=== PATIENT | male | born 1935 | race Asian ===

== ENCOUNTER 2017-04-13 10:23 | Emergency (ER) | payer OTHER ==
[2017-04-13 10:28] VITALS: BMI 24.7
[2017-04-13] MEDS ORDERED: ACETAMINOPHEN 325 MG TABLET (FP) PO ONE (10:32)
--- NOTE | 2017-04-13 10:51 | PDOC ---
Attending Attestation - HPI HPI: 04/13/17 11:54 81 year old male with significant past medical history of Afib (on eliquis), CAD , aortic stenosis s/p OMARI (01/2017), HTN, HLD, gout, who presents to the emergency room with 4 days of intermittent fever, cough, body aches, and bilateral calf pain. Pt does not speak Somali - history obtained from daughter. The patient returned from a trip to the [facility] 4 days ago. He reports bilateral calf pain, with the right worse than the left. The fever began after returning from his trip,with the highest being 102. As per daughter , the patient walked downstairs in his sleep last night and does not remember doing so, which has never happened in the past. Denies abdominal pain, nausea, vomiting, diarrhea, constipation. Denies chest pain, SOB. Allergies: NKDA PCP: Dr. Goyal <Rosmery Avalos - Last Filed: 04/13/17 11:54> - Resident Resident Name: Christiano Fox - ED Attending Attestation I have performed the following: I have examined & evaluated the patient, The case was reviewed & discussed with the resident, I agree w/resident's findings & plan, Exceptions are as noted - Physicial Exam PE: GENERAL: Awake, alert, and fully oriented, in no acute distress HEAD: No signs of trauma EYES: PERRLA, EOMI, sclera anicteric, conjunctiva clear ENT: Auricles normal inspection, hearing grossly normal, nares patent, oropharynx clear without exudates. Dry mucosa NECK: Normal ROM, supple, no lymphadenopathy, JVD, or masses LUNGS: Breath sounds equal, clear to auscultation bilaterally. No wheezes, and no crackles. Intermittent dry cough. HEART: Regular rate and rhythm, normal S1 and S2, no murmurs, rubs or gallops ABDOMEN: Soft, nontender, normoactive bowel sounds. No guarding, no rebound. No masses EXTREMITIES: Normal range of motion, no edema. No clubbing or cyanosis. No cords, erythema, or tenderness NEUROLOGICAL: Cranial nerves II through XII grossly intact. Normal speech, normal gait SKIN: Warm, Dry, normal turgor, no rashes or lesions noted. - Medical Decision Making Pt with positive flu swab. Symptoms are consistent with flu. Given IV hydration with improvement in symptoms. Able to tolerate PO in ED. Will DC home. D/w METAL ENGINEERING PROCESS WORKER covering Dr. Goyal. <Kaci Lares - Last Filed: 04/13/17 15:47>
[2017-04-13] MEDS ORDERED: SODIUM CHLORIDE 1,000 ML IV STA (11:07)
--- NOTE | 2017-04-13 11:19 | PDOC ---
History of Present Illness - General Chief Complaint: SIRS, Suspected/Possible Stated Complaint: FEVER Time Seen by Provider: 04/13/17 10:50 History Source: Family Exam Limitations: No Limitations - History of Present Illness Initial Comments: 04/13/17 11:19 The patient is a 81 year old male, with a significant past medical history of HTN, HLD, CAD, A-fib, Aortic Stenosis, and Gout, who presents to the emergency department with fever x 4 days. Patient underwent uncomplicated TAVR on February 17 and then went to the [facility] from 03/09-04/08. Patient returned on and began having fevers that were controlled by tylenol. Patient's Tmax was 102.6 measured by daughter. Patient also complained of headache, muscle aches, and dry cough. Patient came to the ED today due to hallucinations at 3 am last night. Per daughter, patient was altered from baseline. Patient endorses chills , wheezing, bilateral calf pain (R>L) The patient denies chest pain, shortness of breath, dizziness. Denies nausea, vomit, diarrhea and constipation. Denies dysuria, frequency, urgency and hematuria. Allergies: NKDA Past surgical history: TAVR, CABG Social history: denies PMD - Dr. Goyal Past History - Past Medical History Allergies/Adverse Reactions: Allergies Allergy/AdvReac Type Severity Reaction Status Date / Time No Known Allergies Allergy Verified 04/13/17 10:29 Home Medications: Ambulatory Orders Apixaban [Eliquis] 2.5 mg PO DAILY 08/19/15 Colchicine 0.6 mg PO DAILY 08/19/15 Levothyroxine [Synthroid -] 50 mcg PO DAILY 08/19/15 Metoprolol Succinate [Toprol Xl -] 25 mg PO DAILY 08/19/15 Ranolazine [Ranexa] 500 mg PO BID 08/19/15 Rosuvastatin Calcium [Crestor] 5 mg PO HS 08/19/15 Clopidogrel Bisulfate [Plavix -] 75 mg PO DAILY 04/13/17 Pantoprazole Sodium 40 mg PO DAILY 04/13/17 Cardiac Disorders: Yes (CABG 08, DEFIB,) HTN: Yes Hypercholesterolemia: Yes - Surgical History Cardiac Surgery: Yes (CABG 08, DEFIB) - Suicide/Smoking/Psychosocial Hx Smoking History: Never smoked Hx Alcohol Use: No Drug/Substance Use Hx: No Substance Use Type: None Review of Systems - Review of Systems Able to Perform ROS?: Yes Comments:: 04/13/17 11:23 GENERAL/CONSTITUTIONAL: + fever, + chills. No weakness. HEAD, EYES, EARS, NOSE AND THROAT: No change in vision. No ear pain or discharge. No sore throat. CARDIOVASCULAR: No chest pain or shortness of breath RESPIRATORY: + dry cough, + wheezing, No hemoptysis. GASTROINTESTINAL: No nausea, vomiting, diarrhea or constipation. GENITOURINARY: No dysuria, frequency, or change in urination. MUSCULOSKELETAL: +B/l calf pain (L>R). No neck or back pain. SKIN: No rash NEUROLOGIC: + headache, No vertigo, loss of consciousness, or change in strength /sensation. ENDOCRINE: No increased thirst. No abnormal weight change HEMATOLOGIC/LYMPHATIC: No anemia, easy bleeding, or history of blood clots. ALLERGIC/IMMUNOLOGIC: No hives or skin allergy. *Physical Exam - Vital Signs Last Vital Signs Temp Pulse Resp BP Pulse Ox 101.8 F H 94 H 20 156/73 98 04/13/17 10:25 04/13/17 10:25 04/13/17 10:25 04/13/17 10:25 04/13/17 10:25 - Physical Exam Comments: 04/13/17 11:23 GENERAL: Awake, alert, and fully oriented, in no acute distress HEAD: No signs of trauma, normocephalic, atraumatic EYES: PERRLA, EOMI, sclera anicteric, conjunctiva clear ENT: Hearing grossly normal, nares patent, oropharynx clear without exudates. Dry mucosa NECK: Normal ROM, supple, no lymphadenopathy, JVD, or masses LUNGS: No distress, speaks full sentences, clear to auscultation bilaterally HEART: Regular rate and rhythm, normal S1 and S2, +NASEEM at left sternal border ABDOMEN: Soft, nontender, normoactive bowel sounds. No guarding, no rebound. No masses EXTREMITIES: +gouty changes of right hand-- chronic. No clubbing or cyanosis. +B /l calf tenderness to palpation (L>R) No edema SKIN: Warm, Dry, normal turgor, no rashes or lesions noted. ED Treatment Course - LABORATORY CBC & Chemistry Diagram: 04/13/17 11:22 04/13/17 11:05 - RADIOLOGY Radiology Studies Ordered: Category Date Time Status CHEST X-RAY PORTABLE* [RAD] Stat Radiology 04/13/17 11:07 Ordered DUPLEX VASCUL US-2LEGS [US] Stat Ultrasound 04/13/17 11:09 Ordered - Medications Given in the ED: ED Medications Discontinued Medications Generic Name Dose Route Start Last Admin Trade Name Dee PRN Reason Stop Dose Admin Acetaminophen 650 mg 04/13/17 10:32 04/13/17 10:32 Tylenol - PO 04/13/17 10:33 650 mg NOW ONE Administration Medical Decision Making - Medical Decision Making 04/13/17 11:26 The patient is a 81 year old male, with a significant past medical history of HTN, HLD, CAD, A-fib, Aortic Stenosis, and Gout, who presents to the emergency department with fever x 4 days. Given history, physical exam, and vital signs, differential is broad and includes: influenza, TAVR infection, DVT, PE, Pneuomnia. Plan: ED sepsis workup, Influenza Swab, Ultrasound lower extremities 04/13/17 11:33 CBC- hgb 10.6. WBC- 4.6 Plt- 115 EKG- NSR, HR 79, no ST changes suggestive of acute ischemia/infarct 04/13/17 12:54 Labs, UA unremarkable. lactic acid-1.3. Call placed to Dr. Goyal. Spoke with HEALTHCARE ADMINISTRATION INTERN for Dr. Goyal, Case was discussed. HEALTHCARE ADMINISTRATION INTERN feels patient needs hydration and rest and can be discharged. 04/13/17 12:57 Patient feeling much better. Tolerated PO intake. Patient stable for discharge *DC/Admit/Observation/Transfer Diagnosis at time of Disposition: Influenza A - Discharge Dispostion Disposition: HOME Condition at time of disposition: Stable - Referrals Referrals: Kim Goyal MD [Primary Care Provider] - - Patient Instructions Printed Discharge Instructions: DI for Influenza -- Adult Additional Instructions: Follow up with your primary care provider within 1 week. Take tylenol for the fever every 6 hours as needed. Drink plenty of fluids. If you have worsening fever, chest pain, shortness of breath, or any new symptoms please come back to the hospital immediately.
[2017-04-13 11:23] LABS: BASOPHIL 0.7 % (0-2.0); EOSINOPHIL 2.6 % (0-4.5); MCH 34.4 pg (25.7-33.7); MCHC 34.1 g/dl (32.0-35.9); MEAN CELL VOLUME 100.8 fl (80-96); MEAN PLT VOLUME 8.8 fl (7.5-11.1); NEUTROPHILS 69.1 % (42.8-82.8); PLATELET COUNT 115 K/MM3 (134-434); WHITE BLOOD COUNT 4.6 K/mm3 (4.0-10.0)
[2017-04-13 11:48] LABS: ALBUMIN 3.5 g/dl (3.4-5.0); ANION GAP 12 (8-16); BILIRUBIN,TOTAL 0.9 mg/dL (0.2-1.0); CALCIUM 7.8 mg/dL (8.5-10.1); CO2 22 mmol/L (21-32); CPK 106 IU/L (39-308); CREATININE 1.5 mg/dL (0.7-1.3); GLUCOSE,RANDOM 97 mg/dL (74-106); SGOT/AST 56 U/L (15-37); SGPT/ALT 28 U/L (12-78); TOT PROT 6.9 g/dl (6.4-8.2)
[2017-04-13 11:51] LABS: ALK PHOS 64 U/L (45-117); TROPONIN I 0.08 ng/ml (0.00-0.05)
[2017-04-13 12:11] LABS: INR 1.34 (0.82-1.09); PROTHROMBIN TIME (PATIENT) 15.1 SEC (9.98-11.88)
[2017-04-13 12:14] LABS: ACTIVATED PTT 34.8 SECONDS (26.9-34.4)
[2017-04-13 12:19] LABS: URINE APPEARANCE SLCLOUDY; URINE BILIRUBIN NEGATIVE (NEGATIVE); URINE BLOOD 1+ (NEGATIVE); URINE COLOR YELLOW; URINE GLUCOSE (UA) NEGATIVE (NEGATIVE); URINE KETONE NEGATIVE (NEGATIVE); URINE NITRITE NEGATIVE (NEGATIVE); URINE UROBILINOGEN NEGATIVE mg/dL (0.2-1.0)
[2017-04-13 12:21] LABS: URINE PROTEIN 1+ (NEGATIVE)
[2017-04-13 12:23] LABS: GRANULAR CASTS 5 /lpf; URINE HYALINE CAST 5 /lpf; URINE MUCUS RARE; URINE RBC 2 /hpf (0-3); URINE WBC 1 /hpf (3-5)
[2017-04-13 13:11] VITALS: BP 140/61; PULSE 91; TEMP 98.5
[2017-04-13 17:35] LABS: URINE LEUK ESTERASE Negative (NEGATIVE)
--- NOTE | 2017-04-14 10:14 | EKG ---
Test Reason : Blood Pressure : / mmHG Vent. Rate : 079 BPM Atrial Rate : 079 BPM P-R Int : 180 ms QRS Dur : 094 ms QT Int : 406 ms P-R-T Axes : -05 -19 018 degrees QTc Int : 465 ms NORMAL SINUS RHYTHM INFERIOR INFARCT (CITED ON OR BEFORE 31-AUG-2009) ABNORMAL ECG WHEN COMPARED WITH ECG OF 31-AUG-2009 17:43, MS INTERVAL HAS DECREASED T WAVE VARIATION Confirmed by JAVIER AGUILERA, MAYUR ([id number]) on 04/14/2017 10:14:11 AM Referred By: Confirmed By:MAYUR HERRERA MD
== END 2017-04-13 13:11 | disposition home or self-care (01) ==
LOC: JER 10:23
PROC: 3E0337Z Introduction of Electrolytic and Water Balance Substance into Peripheral Vein, Percutaneous Approach (ICD-10-PCS; principal; 2017-04-13)
DX: J09.X2 Influenza due to identified novel influenza A virus with other respiratory manifestations (principal); I25.10 Atherosclerotic heart disease of native coronary artery without angina pectoris; I10 Essential (primary) hypertension; Z95.1 Presence of aortocoronary bypass graft; I48.91 Unspecified atrial fibrillation; Z79.01 Long term (current) use of anticoagulants; I35.0 Nonrheumatic aortic (valve) stenosis; M10.9 Gout, unspecified; Z95.4 Presence of other heart-valve replacement; E78.00 Pure hypercholesterolemia, unspecified; F40.298 Other specified phobia
CPT/HCPCS: 36415; 71010-TC; 80053; 81003; 81015; 82550; 83605; 84484; 85025; 85610; 85730; 86850; 86900; 86901; 87040; 87086; 87804; 93005; 93010; 96360; 96361; 99283-25

== ENCOUNTER 2018-10-03 10:13 | Inpatient (IN) | payer OTHER ==
--- NOTE | 2018-10-03 10:51 | PDOC ---
History of Present Illness - General Chief Complaint: Injury Stated Complaint: LF FOOT INJURY Time Seen by Provider: 10/03/18 10:42 History Source: Patient Exam Limitations: No Limitations - History of Present Illness Initial Comments: Pt is an 83 yo M, with PMH of HTN, HLD, CAD and A-fib (s/p defibrillator and CABG, on eliquis and plavix), TIA, aortic stenosis, and gout, who is presenting via EMS from home for complaints of pre-syncopal episode with fall last night, and difficulty ambulating due to swollen L ankle this AM. Pt is accompanied by his daughter, and pt is Tagalog speaking. Pt states last night he was walking ( pt can normally ambulate with a cane), but fell down to the ground on his knees because he "felt like he might pass out". He denies hitting his head or having LOC. The daughter helped him up from the floor, and he was able to ambulate until this AM. Pt has had a swollen and painful L ankle, and had difficulty bearing weight on the ankle this AM. Pt denies any fevers/chills, headache, vision changes, chest pain, palpitations, SOB, orthopnea, nausea/vomiting, abdominal pain, urinary symptoms, diarrhea/constipation, or leg swelling. Pts daughter, Roma (cell - [phone]). Social: Pt denies any cigarette, alcohol, or drug use. Pt denies any recent travel or sick contacts. Surgical: CABG, defibrillator placement as above. Family: no relevant history. 10/03/18 14:54 Past History - Travel Traveled outside of the country in the last 30 days: No Close contact w/someone who was outside of country & ill: No - Past Medical History Allergies/Adverse Reactions: Allergies Allergy/AdvReac Type Severity Reaction Status Date / Time No Known Allergies Allergy Verified 04/13/17 10:29 Home Medications: Ambulatory Orders Apixaban [Eliquis] 2.5 mg PO DAILY 08/19/15 Colchicine 0.6 mg PO DAILY 08/19/15 Levothyroxine [Synthroid -] 50 mcg PO DAILY 08/19/15 Metoprolol Succinate [Toprol Xl -] 25 mg PO DAILY 08/19/15 Ranolazine [Ranexa] 500 mg PO BID 08/19/15 Rosuvastatin Calcium [Crestor] 5 mg PO HS 08/19/15 Clopidogrel Bisulfate [Plavix -] 75 mg PO DAILY 04/13/17 Pantoprazole Sodium 40 mg PO DAILY 04/13/17 Cardiac Disorders: Yes (CABG 08, DEFIB,) COPD: No HTN: Yes Hypercholesterolemia: Yes Other medical history: gout - Surgical History Cardiac Surgery: Yes (CABG 08, DEFIB) - Suicide/Smoking/Psychosocial Hx Smoking History: Former smoker Have you smoked in the past 12 months: No Information on smoking cessation initiated: No Hx Alcohol Use: No Drug/Substance Use Hx: No Substance Use Type: None Review of Systems - Review of Systems Able to Perform ROS?: Yes Is the patient limited Wolof proficient: No Constitutional: Yes: Weight Stable. No: Chills, Diaphoresis, Fever, Loss of Appetite, Malaise, Weakness HEENTM: No: Blurred Vision, Double Vision, Nose Pain, Nose Congestion, Throat Pain, Throat Swelling, Difficulty Swallowing Respiratory: No: Cough, Orthopnea, Shortness of Breath Cardiac (ROS): Yes: Lightheadedness. No: Chest Pain, Edema, Irregular Heart Rate, Palpitations, Syncope, Chest Tightness ABD/GI: No: Constipated, Diarrhea, Nausea, Poor Appetite, Poor Fluid Intake, Vomiting : No: Burning, Dysuria, Pain, Urgency Musculoskeletal: Yes: See HPI, Joint Pain (L ankle pain and swelling x4 days, gout in hands), Joint Swelling. No: Back Pain, Muscle Pain, Muscle Weakness Integumentary: No: Rash Neurological: Yes: Unsteady Gait, Dizziness. No: Headache, Numbness, Paresthesia, Weakness, Ataxia Psychiatric: No: Sleep Pattern Change, Change in Appetite Endocrine: No: Increased Urine, Change in Weight Hematologic/Lymphatic: Yes: Blood Clots (TIA, CAD). No: Anemia, Easy Bleeding, Easy Bruising All Other Systems: Reviewed and Negative *Physical Exam - Vital Signs Last Vital Signs Temp Pulse Resp BP Pulse Ox 97.8 F 78 16 94/55 L 98 10/03/18 10:25 10/03/18 10:25 10/03/18 10:25 10/03/18 10:25 10/03/18 10:25 - Physical Exam Comments: BP 94/55, HR 78, O2 98% on RA, pt afebrile. Pt in NAD, normal body habitus. Pt alert and oriented x3. collision technician generally intact, muscular strength and sensation intact. Head normocephalic, atraumatic. Eyes PERRLA, EOMI. Oropharynx without erythema or exudates, no LAD b/l. No nasal congestion, hearing intact. Clear heart sounds, S1/S2, no JVD, b/l pedal edema, or heart murmur. Clear lung sounds, no respiratory distress, wheezes, crackles, or accessory muscle use. No abdominal or CVA tenderness to palpation, no rebound, no guarding. Abdomen soft, non-distended, and with normoactive bowel sounds. Skin without jaundice or rash. DP pulses intact b/l, mild edema around L malleoli and dorsum of foot, nontender to palpation. Mild duskiness of 2nd and 3rd L toes. 10/03/18 14:34 ED Treatment Course - LABORATORY CBC & Chemistry Diagram: 10/03/18 11:35 10/03/18 11:35 Medical Decision Making - Medical Decision Making Pt was seen at bedside, also will be seen by attending Dr. Benson. Pt presenting via EMS from home for complaints of pre-syncopal episode with fall last night, and difficulty ambulating due to swollen L ankle this AM. Pt is accompanied by his daughter, and pt is Tagalog speaking. Pt states last night he was walking (pt can normally ambulate with a cane), but fell down to the ground on his knees because he "felt like he might pass out". He denies hitting his head or having LOC. The daughter helped him up from the floor, and he was able to ambulate until this AM. Pt has had a swollen and painful L ankle, and had difficulty bearing weight on the ankle this AM. Pt denies any fevers/chills , headache, vision changes, chest pain, palpitations, SOB, orthopnea, nausea/ vomiting, abdominal pain, urinary symptoms, diarrhea/constipation, or leg swelling. Pts daughter, Roma (cell - [phone]). Ordered work-up including CBC, CMP, coags, cardiac profile, ECG, chest x-ray, UA , x-ray of L foot and ankle, and b/l LE venous and arterial dopplers. Will obtain head CT to r/o any new ischemia/CVA, and look at LE doppler to r/o any emboli or DVT that may be causing lower extremity unilateral swelling considering pt risk factors for emboli. Considering ACS, electrolyte abnormalities and anemia for other causes of pre-syncopal episode. Swelling in foot could also be 2/2 to gout exacerbation or trauma/fracture from the fall. Will continue to reassess pt and monitor for symptomatic improvement. ECG: sinus with 1st degree AV block, LAD (HR 73, NH 220, QRS 104, QTc 440). No TWIs or significant ST segment changes. No significant changes from prior ECG ( 03/2017). CBC and CMP generally WNL for pt. Trop <.02, UA not significant for infection. CT head: no acute pathology, chronic ischemic changes. CT chest: no acute pathology. X-ray L foot: 3 views of the left foot reveal bunion formation by the first MTP joint, other toes with arthritic changes, calcaneal spurring and some vascular calcifications. An acute fracture or subluxation is not seen. Erosive changes or calcifications suggestive of gout are not seen. If symptoms persist, further imaging may be of help 10/03/18 14:34 Dr. Goyal team paged for admission. Consult order placed for Dr. Solomon. Pt in US for b/l LE doppler (arterial and venous). 10/03/18 14:40 Pt admitted to [facility] team. Pending read of doppler US. 10/03/18 15:10 BILATERAL LOWER EXTREMITY ARTERIAL ULTRASOUND Clinical information given: left foot swelling, cyanosis The exam was performed utilizing grayscale as well as color flow and spectral Doppler sonography. Decreased monophasic flow is seen at the level of the left popliteal and posterior tibial arteries. The left common femoral, and superficial femoral arteries demonstrate unremarkable triphasic flow. Evaluation of the right lower extremity demonstrates somewhat diminished biphasic flow at the level of the superficial femoral, popliteal and posterior tibial arteries. The right common femoral artery demonstrates unremarkable triphasic flow. 10/03/18 15:[address] Adhikari (vascular). Pt comfortable and pending bed upstairs for further work-up. 10/03/18 15:55 *DC/Admit/Observation/Transfer Diagnosis at time of Disposition: Pre-syncope, Peripheral arterial disease - Discharge Dispostion Condition at time of disposition: Stable Decision to Admit order: Yes - Referrals Referrals: Kim Goyal MD [Primary Care Provider] - - Patient Instructions - Post Discharge Activity
[2018-10-03 11:51] LABS: BASO % 0.4 % (0-2.0); EOS % 0.7 % (0-4.5); HEMATOCRIT 36.6 % (35.4-49); HEMOGLOBIN 12.7 GM/dL (11.7-16.9); LYMPH % 14.2 % (8-40); MCH 35.4 pg (25.7-33.7); MCHC 34.7 g/dl (32.0-35.9); MEAN PLT VOLUME 7.7 fl (7.5-11.1); MONO % 16.6 % (3.8-10.2); NEUT % 68.1 % (42.8-82.8); PLATELET COUNT 200 K/MM3 (134-434); RBC 3.59 M/mm3 (4.00-5.60); RDW 13.6 % (11.9-15.9); WHITE BLOOD COUNT 5.9 K/mm3 (4.0-10.0)
[2018-10-03 12:20] LABS: ALBUMIN 3.5 g/dl (3.4-5.0); ALK PHOS 63 U/L (45-117); ANION GAP 6 MMOL/L (8-16); BILIRUBIN,TOTAL 0.9 mg/dL (0.2-1); BLOOD UREA NITROGEN 18 mg/dL (7-18); CALCIUM 8.2 mg/dL (8.5-10.1); CHLORIDE 104 mmol/L (98-107); CO2 28 mmol/L (21-32); CREATININE 1.6 mg/dL (0.55-1.3); GLUCOSE,RANDOM 102 mg/dL (74-106); MAGNESIUM 1.9 mg/dL (1.8-2.4); SGOT/AST 21 U/L (15-37); SGPT/ALT 15 U/L (13-61); SODIUM 138 mmol/L (136-145); TOT PROT 6.7 g/dl (6.4-8.2)
[2018-10-03 12:20] LABS: PH,URINE 6.5 (5.0-8.0); URINE APPEARANCE CLEAR; URINE BACTERIA 1.9 /hpf (NEGATIVE); URINE BILIRUBIN NEGATIVE (NEGATIVE); URINE CASTS 3 /hpf (0-8); URINE COLOR DK YELLOW; URINE GLUCOSE (UA) NEGATIVE (NEGATIVE); URINE KETONE TRACE (NEGATIVE); URINE LEUK ESTERASE 1+ (NEGATIVE); URINE NITRITE NEGATIVE (NEGATIVE); URINE PROTEIN TRACE (NEGATIVE); URINE RBC 3 /hpf (0-4); URINE WBC 11 /hpf (0-5)
[2018-10-03 13:36] LABS: INR 1.34 (0.83-1.09); PROTHROMBIN TIME (PATIENT) 15.8 SEC (9.7-13.0)
--- NOTE | 2018-10-03 13:40 | PDOC ---
Attending Attestation - Resident Resident Name: Radha Lau - ED Attending Attestation I have performed the following: I have examined & evaluated the patient, The case was reviewed & discussed with the resident, I agree w/resident's findings & plan, Exceptions are as noted - HPI HPI: 10/03/18 13:32 - Medical Decision Making 10/03/18 13:33 83 yo M h/o HTN HLD CAD AICD afib prior cabg severe aortic stenosis here with c/ o near syncopy. pt state he was standing suddenly felt lightheaded, and fell. was able to ease himself to the ground. denies hitting his head. but is on blood thinner. has h/o gout usually in hands, today c/o left ankle pain and swelling. unsure if from injury day prior. no cp no sob. no f/c no mod factors. pt daughter provides most history states pt unable to walk due to severe pain in left foot. / leg. on exam pt awake alert head atraumtic. lung and heart normal. abd no pulsatile mass. left leg with mild erythema warmth bilat mall, pain with rom no eccymosis. 2 + dp/ pt pulses bilaterlaly . differential near syncope, syncpoe from anemia infection, acs, gout vs. traumatic injury dvt. plan focused ED us aorta r/o aaa, cardiac echo, labs ekg ua xray left ankle. due to pt cant walk, will matti require admission for pt assessmet, rehab. and tele r/o acs. focused ED TTE no rv dilation. overall mildly decr contractility. aortic valve with calcifications, no pericardial effusion. impression: mild red contractility, aortic stenosis / calcification, no pericardial effusion. aorta scanned in two planes. indication syncope r/o aaa prox measured 1.23 cm mid measured 1.5 cm distal aorta < 3 cm. impression: no AAA. plan labs xray doppler left leg. will admit tele obs. pt / assessment. possible sw for rehab. <Teresa Benson - Last Filed: 10/03/18 13:31> - HPI HPI: The patient is a 83 year old Tagalog speaking male, with a significant past medical history of Afib (on eliquis), CAD, aortic stenosis s/p (OMARI 01/2017), HTN, HLD, gout, who presents to the emergency department s/p episode of near syncope. As per patients daughter, he began to feel lightheaded and subsequently lowered himself to the floor. She notes the patient is experiencing swelling to the left ankle with mild discoloration. Allergies: NKDA Primary Care Physician: Dr. Goyal Documentation prepared by Silvano Plata, acting as medical physicist for Teresa Benson MD. <Silvano Plata - Last Filed: 10/03/18 13:52> Heart Score/ECG Review #1 General ECG Interpretation: Sinus Rhythm, Normal Rate (73), Normal Intervals, No acute ischemic changes <Teresa Benson - Last Filed: 10/03/18 13:31>
[2018-10-03] MEDS: RANOLAZINE E.R. 500 MG TABLET (FP) PO SCH (22:46)
[2018-10-03] MEDS: ROSUVASTATIN CA 5 MG TABLET (FP) PO SCH (22:46)
[2018-10-04 01:29] VITALS: BMI 26.2
[2018-10-04] MEDS: LEVOTHYROXINE NA 25 MCG TABLET (FP) PO SCH (06:24)
[2018-10-04 07:35] LABS: BASO % 0.4 % (0-2.0); EOS % 1.5 % (0-4.5); HEMATOCRIT 36.5 % (35.4-49); MCHC 35.5 g/dl (32.0-35.9); MEAN CELL VOLUME 101.4 fl (80-96); MEAN PLT VOLUME 7.6 fl (7.5-11.1); NEUT % 68.1 % (42.8-82.8); PLATELET COUNT 197 K/MM3 (134-434); RDW 13.9 % (11.9-15.9); WHITE BLOOD COUNT 6.3 K/mm3 (4.0-10.0)
[2018-10-04 08:26] LABS: ALBUMIN 3.5 g/dl (3.4-5.0); ALK PHOS 65 U/L (45-117); ANION GAP 7 MMOL/L (8-16); BILIRUBIN,TOTAL 1.1 mg/dL (0.2-1); BLOOD UREA NITROGEN 19 mg/dL (7-18); CALCIUM 8.3 mg/dL (8.5-10.1); CHLORIDE 104 mmol/L (98-107); CO2 27 mmol/L (21-32); CREATININE 1.5 mg/dL (0.55-1.3); GLUCOSE,RANDOM 104 mg/dL (74-106); SGOT/AST 19 U/L (15-37); SGPT/ALT 15 U/L (13-61); SODIUM 138 mmol/L (136-145); TOT PROT 6.8 g/dl (6.4-8.2)
[2018-10-04] MEDS: PANTOPRAZOLE 40 MG TABLET (FP) PO SCH (09:08)
[2018-10-04] MEDS: RANOLAZINE E.R. 500 MG TABLET (FP) PO SCH ×2 (09:08→21:36)
[2018-10-04] MEDS: metoPROLOL SUCCINATE 25 MG TAB.SR.24H (FP) PO SCH (09:08)
[2018-10-04] MEDS: CLOPIDOGREL BISULFATE 75 MG TABLET (FP) PO SCH (09:08)
--- NOTE | 2018-10-04 09:08 | HP ---
Admitting History and Physical - Admission Chief Complaint: Syncope. Weakness History of Present Illness: 3 yo M h/o HTN HLD CAD AICD afib prior cabg severe aortic stenosis here with c/ o near syncopy. pt state he was standing suddenly felt lightheaded, and fell. was able to ease himself to the ground. denies hitting his head. but is on blood thinner. has h/o gout usually in hands, today c/o left ankle pain and swelling. unsure if from injury day prior. no cp no sob. no f/c no mod factors. pt daughter provides most history states pt unable to walk due to severe pain in left foot. / leg. on exam pt awake alert head atraumtic. lung and heart normal. abd no pulsatile mass. left leg with mild erythema warmth bilat mall, pain with rom no eccymosis. 2 + dp/ pt pulses bilaterlaly . differential near syncope, syncpoe from anemia infection, acs, gout vs. traumatic injury dvt. plan focused ED us aorta r/o aaa, cardiac echo, labs ekg ua xray left ankle. due to pt cant walk, jorge alberto chino require admission for pt assessmet, rehab. and tele r/o acs. History Source: Patient, Medical Record Limitations to Obtaining History: No Limitations - Smoking History Smoking history: Former smoker Have you smoked in the past 12 months: No - Alcohol/Substance Use Hx Alcohol Use: No Home Medications - Allergies Allergies/Adverse Reactions: Allergies Allergy/AdvReac Type Severity Reaction Status Date / Time No Known Allergies Allergy Verified 04/13/17 10:29 - Home Medications Home Medications: Ambulatory Orders Apixaban [Eliquis] 2.5 mg PO DAILY 08/19/15 Colchicine 0.6 mg PO DAILY 08/19/15 Levothyroxine [Synthroid -] 50 mcg PO DAILY 08/19/15 Metoprolol Succinate [Toprol Xl -] 25 mg PO DAILY 08/19/15 Ranolazine [Ranexa] 500 mg PO BID 08/19/15 Rosuvastatin Calcium [Crestor] 5 mg PO HS 08/19/15 Clopidogrel Bisulfate [Plavix -] 75 mg PO DAILY 04/13/17 Pantoprazole Sodium 40 mg PO DAILY 04/13/17 Physical Examination Vital Signs: Vital Signs Temperature 99.2 F 04/14/19 05:58 Pulse Rate 72 10/04/18 05:58 Respiratory Rate 18 10/04/18 05:58 Blood Pressure 145/87 10/04/18 05:58 O2 Sat by Pulse Oximetry (%) 97 10/03/18 23:30 Constitutional: Yes: Well Nourished, No Distress, Calm Cardiovascular: Yes: Regular Rate and Rhythm Respiratory: Yes: Regular Gastrointestinal: Yes: Normal Bowel Sounds, Soft Musculoskeletal: Yes: Muscle Weakness Extremities: Yes: WNL Edema: No Peripheral Pulses WNL: Yes Neurological: Yes: Alert, Oriented Psychiatric: Yes: Alert, Oriented Labs: CBC, BMP 10/04/18 06:40 10/04/18 06:35 Imaging - Results Chest X-ray: Report Reviewed Cat Scan: Report Reviewed Ultrasound: Report Reviewed Problem List - Problems (1) Weakness Assessment/Plan: -Physiatry consult -Neuro consult -Deficient in G50=byemguoxh risk for falls -Vit D results pending= deficiency also associated with increased falls- replenish if low -check thyroid panel -UA unremarkable -UC pending -Also check rapid influenza Code(s): R53.1 - WEAKNESS (2) Aortic stenosis Assessment/Plan: -Cardiology consult pending -Tele monitor -Last echo done 08/01/18-normal LVEF Code(s): I35.0 - NONRHEUMATIC AORTIC (VALVE) STENOSIS (3) Peripheral arterial disease Assessment/Plan: -Vascular eval -Likely no intervention Code(s): I73.9 - PERIPHERAL VASCULAR DISEASE, UNSPECIFIED (4) Pre-syncope Assessment/Plan: -Cardiology consult -Neurology consult -Physical therapy -check orthostatic BP Code(s): R55 - SYNCOPE AND COLLAPSE (5) CKD (chronic kidney disease) Assessment/Plan: -Nephrology consult Code(s): N18.9 - CHRONIC KIDNEY DISEASE, UNSPECIFIED Assessment/Plan see problem list On eliquis 2.5 mg once a day, unsure about the indication-PAD?
[2018-10-04] MEDS: CYANOCOBALAMIN (VITAMIN B-12) 1000 MCG/1 ML VIAL IM SCH (09:30)
--- NOTE | 2018-10-04 09:50 | CONS ---
PHYSICAL MEDICINE AND REHABILITATION CONSULTATION DATE OF CONSULTATION: 10/04/2018 HISTORY OF PRESENT ILLNESS: Patient is an 83-year-old male with a past medical history of gout, atrial fibrillation on Eliquis, coronary artery disease, coronary artery bypass graft and defibrillator as well as aortic stenosis and TIA who was admitted after a fall with left ankle pain and swelling as well as presyncopal episodes. Patient per the medical record did not experience any loss of consciousness or head trauma, but fell to his knees and developed left ankle and foot pain. X-rays revealed vascular calcifications, but no fracture. CT of the head showed no acute intracranial pathology and moderate chronic microvascular ischemic changes. Doppler ultrasound showed diminished flow at the level of the left popliteal and posterior tibial arteries. Venous Doppler was negative. CBC on admission demonstrated WBCs 5.9, hemoglobin 12.7, platelet count 200. Repeat blood work this morning was stable with WBCs 6.3, hemoglobin 13.0, platelet count 197. INR was slightly elevated on admission 1.34. Chemistry demonstrated elevated BUN 18 to creatinine 1.6, otherwise sodium 138, potassium 4.0, chloride 104, CO2 of 28. B12 level done today was low at 228. Troponin less than 0.02. Chemistry repeated today showed BUN 19, creatinine 1.5. No uric acid level available. Patient is seen in rehabilitation evaluation, yet to be seen by Physical Therapy. REVIEW OF PAST MEDICAL AND SURGICAL HISTORY: As above. SOCIAL HISTORY: Not available. The patient per his intake demographics may live with a daughter in a private house, premorbidly ambulated with a straight cane. CURRENT FUNCTION: He has been at bedrest as he has just been admitted. REVIEW OF SYSTEMS: No dizziness, lightheadedness. No blurry vision, double vision. No chest pain, shortness of breath. No fever or chills. No bowel, bladder change. He complains of left ankle pain, but no numbness or tingling. No skin discoloration, rash. PHYSICAL EXAMINATION: General: Patient is an elderly man seen lying in bed. He is in no acute distress. HEENT: He is normocephalic and atraumatic. His extraocular muscles appear intact. Neck: Supple. Extremities: He has trace edema of the lower extremities. No calf tenderness, but exquisite tenderness throughout the left ankle which is slightly warm, but again no surrounding erythema or signs of infection. Neuromuscular: He is awake and cooperative, follows visual commands better than verbal due to language barrier. Cranial nerves II through XII grossly intact. Fairly good strength and range throughout the upper extremities despite arthritic changes in the hands. No arthritic changes in the lower extremities except for in the 1st MTP joint, but again he is very tender throughout the left ankle with limited ankle range of motion. Good strength and range proximally in the hip girdle, knee flexors, knee extensors, but the ankle is limited on the left side. Normal range of motion on the right side. Normal sensation to light touch, symmetric reflexes, downgoing toes. OVERALL IMPRESSION: 1. Deficits in mobility, activities of daily living. 2. Left ankle pain and swelling with a history of gout. Seems more tender than would be expected for simple sprain and the tenderness is diffuse, rule out occult fracture, gout or other etiology. 3. Status post fall. 4. Presyncopal episode. 5. Atrial fibrillation on Eliquis. 6. Coronary artery disease, coronary artery bypass graft, defibrillator implant , aortic stenosis. 7. Transient ischemic attack. 8. Elevated creatinine. 9. Low B12 level. 10. Increased risk for decubitus ulcer due to immobility. PLAN/SUGGESTION: 1. Physical therapy. 2. May need left ankle Darius bandage for ankle support. 3. Consider rheumatologic or orthopedic consultation. 4. Consider uric acid level. 5. Replete B12. 6. On Eliquis no further DVT prophylaxis needed. 7. Skin precautions. 8. Bowel regimen, monitor for constipation. 9. May require short-term rehab in a half-way facility. Thank you for this referral. SAGAR RAINES M.D. [id number] MTDD
[2018-10-04] MEDS ORDERED: APIXABAN 2.5 MG TABLET PO SCH (10:00)
--- NOTE | 2018-10-04 12:12 | CONSULT ---
Consult Consult Specialty:: Cardiology (Dr. Denny covering Dr. Solomon) Referred by:: Dr. Goyal Reason for Consultation:: Fall - History of Present Illness Chief Complaint: Fall, ankle pain History of Present Illness: 83 yo M h/o HTN HLD CAD s/p prior CABG (+) Weld Sci ICD placed in 2007 Afib on DOAC Severe aortic stenosis s/p TAVR (Kristian 26mm) in 01/2017 at [facility] [place] Followed by Dr. Solomon Now presents with fall after coming down stairs. History obtain by patient, daughter and spouse at bedside Was found by on the floor awake Patient states that he got to the bottom of his stairs and then fell. Does not recall episodes of prodromal dizziness, chest pains or palpitations. and daughter believe he just lost his balance. Suffered left ankle injury with severe pain No loss of consciousness - History Source History Provided By: Patient, Family Member (Daughter) Limitations to Obtaining History: Poor Historian - Past Medical History Cardio/Vascular: Yes: AFIB, Aortic Stenosis, CAD - Alcohol/Substance Use Hx Alcohol Use: No - Smoking History Smoking history: Former smoker Have you smoked in the past 12 months: No Home Medications - Allergies Allergies/Adverse Reactions: Allergies Allergy/AdvReac Type Severity Reaction Status Date / Time No Known Allergies Allergy Verified 04/13/17 10:29 - Home Medications Home Medications: Ambulatory Orders Apixaban [Eliquis] 2.5 mg PO DAILY 08/19/15 Colchicine 0.6 mg PO DAILY 08/19/15 Levothyroxine [Synthroid -] 50 mcg PO DAILY 08/19/15 Metoprolol Succinate [Toprol Xl -] 25 mg PO DAILY 08/19/15 Ranolazine [Ranexa] 500 mg PO BID 08/19/15 Rosuvastatin Calcium [Crestor] 5 mg PO HS 08/19/15 Clopidogrel Bisulfate [Plavix -] 75 mg PO DAILY 04/13/17 Pantoprazole Sodium 40 mg PO DAILY 04/13/17 Family Disease History - Family Disease History Family History: Unremarkable Review of Systems - Review of Systems Constitutional: reports: No Symptoms Eyes: reports: No Symptoms HENT: reports: No Symptoms Neck: reports: No Symptoms Cardiovascular: reports: No Symptoms Respiratory: reports: No Symptoms Gastrointestinal: reports: No Symptoms Musculoskeletal: reports: Joint Pain (Left ankle) Integumentary: reports: No Symptoms Neurological: reports: No Symptoms Physical Exam Vital Signs: Vital Signs Temperature 98.9 F 10/04/18 11:18 Pulse Rate 79 10/04/18 11:18 Respiratory Rate 18 10/04/18 11:18 Blood Pressure 129/66 10/04/18 11:18 O2 Sat by Pulse Oximetry (%) 97 10/03/18 23:30 Constitutional: Yes: Well Nourished, No Distress Eyes: Yes: WNL HENT: Yes: WNL Neck: Yes: WNL Cardiovascular: Yes: Pulse Irregular, Murmur Respiratory: Yes: CTA Bilaterally Gastrointestinal: Yes: Normal Bowel Sounds Musculoskeletal: Yes: Joint Swelling (Lef ankle edema) Edema: Yes Edema: LLE: 2+ Labs: CBC, BMP 10/04/18 06:40 10/04/18 06:35 Imaging - Results X-ray: Report Reviewed (No acute left ankle fracture) Ultrasound: Report Reviewed (No DVT inleft leg) EKG: Image Reviewed (ECG done on 10/03 at 11Am showed NSR at 73 with 1st deg AVB and inferior Qs.) Assessment/Plan 83 yo male with CAD s/p CABG, ICD (preserved LV function), Severe s/p TAVr in 2017 now with fall. 1) Fall -Unclear course of events but sounds like more mechanical fall rather then cardiogenic -Would monitor on tele for 48 hours -Can also call [employer] and have device rep interrogate ICD on Friday to assess for arrhythmogenic cause. -Needs supportive care to left ankle - no fracture on Xray 2) Severe -s/p TAVR in 2017 with 26mm Kristian-3 valve -On last echo in 03/2018 there was preserved LV function with mild to moderate PVL (paravalvular leak) and mild concentric LVH -No evidence of CHF on exam -Can be followed as outpatient 3) HTN -Controlled and continue current regimen 4) Afib -on DOAC -May need to reassess risk/benfit with Dr. Solomon given recent fall. -Would also reduce his Apixaban dose to 2.5mg BID given age and sCreat
--- NOTE | 2018-10-04 19:24 | CON.NEP ---
Consult Consult Specialty:: NEPHROLOGY Referred by:: ELIA Reason for Consultation:: CKD - History of Present Illness Chief Complaint: JOINT PAINS AND ANKLE SWELLING History of Present Illness: 83 Y/O ADMITTED AFTER A FALL BEING WORKED UP FOR SYNCOPE HE HAS CKD GOING BACK TO 2014 ON LABS PMHX HTN, HLD, CAD S/P CABG S/P AICD 2007 AFIB ON NOAC SEVERE S/P TAVR 2016 - History Source History Provided By: Patient Limitations to Obtaining History: Poor Historian - Past Medical History Cardio/Vascular: Yes: AFIB, Aortic Stenosis, CAD - Alcohol/Substance Use Hx Alcohol Use: No - Smoking History Smoking history: Former smoker Have you smoked in the past 12 months: No Home Medications - Allergies Allergies/Adverse Reactions: Allergies Allergy/AdvReac Type Severity Reaction Status Date / Time No Known Allergies Allergy Verified 04/13/17 10:29 - Home Medications Home Medications: Ambulatory Orders Apixaban [Eliquis] 2.5 mg PO DAILY 08/19/15 Colchicine 0.6 mg PO DAILY 08/19/15 Levothyroxine [Synthroid -] 50 mcg PO DAILY 08/19/15 Metoprolol Succinate [Toprol Xl -] 25 mg PO DAILY 08/19/15 Ranolazine [Ranexa] 500 mg PO BID 08/19/15 Rosuvastatin Calcium [Crestor] 5 mg PO HS 08/19/15 Clopidogrel Bisulfate [Plavix -] 75 mg PO DAILY 04/13/17 Pantoprazole Sodium 40 mg PO DAILY 04/13/17 Nephrology Consult - Height Height: 5 ft 2 in - Weight Weight: 143 lb - BMI Body Mass Index (BMI): 26.2 - Lab Results CBC,BMP: CBC, BMP 10/04/18 06:40 10/04/18 06:35 Anion Gap: Anion Gap Anion Gap 7 MMOL/L (8-16) L 10/04/18 06:35 - Physical Examination Vital Signs: Vital Signs Temperature 99.7 F H 10/04/18 17:00 Pulse Rate 71 10/04/18 17:00 Respiratory Rate 20 10/04/18 17:00 Blood Pressure 153/69 10/04/18 17:00 O2 Sat by Pulse Oximetry (%) 97 10/04/18 09:00 Constitutional: Yes: Well Nourished, No Distress, Calm Eyes: Yes: WNL, Conjunctiva Clear, EOM Intact HENT: Yes: WNL, Atraumatic, Normocephalic Neck: Yes: WNL, Supple, Trachea Midline Cardiovascular: Yes: WNL, Regular Rate and Rhythm Respiratory: Yes: WNL, Regular, CTA Bilaterally Gastrointestinal: Yes: WNL, Normal Bowel Sounds Renal/: Yes: WNL Musculoskeletal: Yes: Joint Stiffness, Joint Swelling Edema: No Peripheral Pulses WNL: Yes Psychiatric: Yes: WNL, Alert, Oriented Assessment/Plan AFIB CAD S/P SYNCOPE PAD UNDERLYING CKD/ NON PROTEINURIC RENAL FUNCTION STABLE SO FAR PLAN- MONITOR RENAL FUNCTION RENAL DATABASE IF NOT DONE EARLIER
--- NOTE | 2018-10-04 19:41 | CON.NEURO ---
Consult - Past Medical History Cardio/Vascular: Yes: AFIB, Aortic Stenosis, CAD - Alcohol/Substance Use Hx Alcohol Use: No - Smoking History Smoking history: Former smoker Have you smoked in the past 12 months: No Home Medications - Allergies Allergies/Adverse Reactions: Allergies Allergy/AdvReac Type Severity Reaction Status Date / Time No Known Allergies Allergy Verified 04/13/17 10:29 - Home Medications Home Medications: Ambulatory Orders Apixaban [Eliquis] 2.5 mg PO DAILY 08/19/15 Colchicine 0.6 mg PO DAILY 08/19/15 Levothyroxine [Synthroid -] 50 mcg PO DAILY 08/19/15 Metoprolol Succinate [Toprol Xl -] 25 mg PO DAILY 08/19/15 Ranolazine [Ranexa] 500 mg PO BID 08/19/15 Rosuvastatin Calcium [Crestor] 5 mg PO HS 08/19/15 Clopidogrel Bisulfate [Plavix -] 75 mg PO DAILY 04/13/17 Pantoprazole Sodium 40 mg PO DAILY 04/13/17 Physical Exam-Neuro Vital Signs: Vital Signs Temperature 99.7 F H 10/04/18 17:00 Pulse Rate 71 10/04/18 17:00 Respiratory Rate 20 10/04/18 17:00 Blood Pressure 153/69 10/04/18 17:00 O2 Sat by Pulse Oximetry (%) 97 10/04/18 09:00 Labs: CBC, BMP 10/04/18 06:40 10/04/18 06:35 INR, PTT INR 1.34 (0.83-1.09) H 10/03/18 13:00 Assessment/Plan Covering for Dr Corcoran CC Fell on stairs HPI 83 year old male history of HTN, HLD, CAD, AICD, Atrial fibrillation, severe arotic stenosis. Patient is on plavix and eliquis. He has history of syncope. Patient fell on stairs and there was no seizure or prolonged LOC. Spoke to nursing staff and daughter over the phone. Patient has left ankle swelling and having difficulty walking. There is no back pain, sensory loss or incontinence. He is able to walk with slight difficulty (as have ankle swelling) . His ct head is normal. He is on telemetry and being observed for any cardiac arrhythmia , as he has history of syncope in april 2018. 3 yo M h/o HTN HLD CAD AICD afib prior cabg severe aortic stenosis here with c/ o near syncopy. pt state he was standing suddenly felt lightheaded, and fell. was able to ease himself to the ground. denies hitting his head. but is on blood thinner. has h/o gout usually in hands, today c/o left ankle pain and swelling. unsure if from injury day prior. no cp no sob. no f/c no mod factors. pt daughter provides most history states pt unable to walk due to severe pain in left foot. / leg. PMH as above SH, ROS, FH reviewed in chart NKDA Home Medications: Apixaban [Eliquis] 2.5 mg PO DAILY 08/19/15 Colchicine 0.6 mg PO DAILY 08/19/15 Levothyroxine [Synthroid -] 50 mcg PO DAILY 08/19/15 Metoprolol Succinate [Toprol Xl -] 25 mg PO DAILY 08/19/15 Ranolazine [Ranexa] 500 mg PO BID 08/19/15 Rosuvastatin Calcium [Crestor] 5 mg PO HS 08/19/15 Clopidogrel Bisulfate [Plavix -] 75 mg PO DAILY 04/13/17 Pantoprazole Sodium 40 mg PO DAILY 04/13/17 NEUROLOGICAL EXAMINATION Alert follow command, no neck stiffness speech is normal Eomi, pupils reactive, no face asymmetry swallowing is normal moving all extremity 5/5 , there is left ankle swelling makes dorsiflexion and planter flexion difficult due to pain sensation is normal reflex are grade 2 generalized and planter is flexor ct head is unremarkable Assessment 83 Year old male History of HLD,HTN,CAD, AICD, Patient has fall ? secondary to syncope, there is no evidence of cord compression or stroke/tia identified. Fall seems to be mechanical fall vs syncope. PLAN: There is no need for EEG, MRI of brain or carotid ultrasound at this time - continue supportive care and cardiac work up - no further work up needed from neuro point of view. Thanking you so much Osbaldo Donnelly MD
[2018-10-04] MEDS: ROSUVASTATIN CA 5 MG TABLET (FP) PO SCH (21:36)
[2018-10-05] MEDS: LEVOTHYROXINE NA 25 MCG TABLET (FP) PO SCH (06:01)
[2018-10-05 07:24] LABS: ALBUMIN 3.3 g/dl (3.4-5.0); ALK PHOS 65 U/L (45-117); ANION GAP 8 MMOL/L (8-16); BILIRUBIN,TOTAL 0.9 mg/dL (0.2-1); BLOOD UREA NITROGEN 18 mg/dL (7-18); CALCIUM 8.4 mg/dL (8.5-10.1); CHLORIDE 103 mmol/L (98-107); CO2 26 mmol/L (21-32); CREATININE 1.5 mg/dL (0.55-1.3); GLUCOSE,RANDOM 124 mg/dL (74-106); POTASSIUM 3.7 mmol/L (3.5-5.1); SGOT/AST 21 U/L (15-37); SGPT/ALT 14 U/L (13-61); SODIUM 138 mmol/L (136-145); TOT PROT 6.5 g/dl (6.4-8.2)
--- NOTE | 2018-10-05 08:16 | PN ---
Progress Note, Physician Chief Complaint: seen and examined. Denies chest pain or SOB No dizziness TELE: NSR w/ rare PVCs History of Present Illness: Patient was admitted with suspected mechanical fall. Previous notes reviewed. Blood pressure well controlled - Current Medication List Current Medications: Active Medications Apixaban (Eliquis -) 2.5 mg PO DAILY [facility] Last Admin: 10/04/18 09:08 Dose: 2.5 mg Clopidogrel Bisulfate (Plavix -) 75 mg PO DAILY [facility] Last Admin: 10/04/18 09:08 Dose: 75 mg Cyanocobalamin (Vitamin B12 Injection -) 1,000 mcg IM DAILY [facility] Last Admin: 10/04/18 09:30 Dose: 1,000 mcg Levothyroxine Sodium (Synthroid -) 50 mcg PO AM [facility] Last Admin: 10/05/18 06:01 Dose: 50 mcg Metoprolol Succinate (Toprol Xl -) 25 mg PO DAILY [facility] Last Admin: 10/04/18 09:08 Dose: 25 mg Pantoprazole Sodium (Protonix -) 40 mg PO DAILY [facility] Last Admin: 10/04/18 09:08 Dose: 40 mg Ranolazine (Ranexa -) 500 mg PO BID [facility] Last Admin: 10/04/18 21:36 Dose: 500 mg Rosuvastatin Calcium (Crestor -) 5 mg PO HS [facility] Last Admin: 10/04/18 21:36 Dose: 5 mg - Objective Vital Signs: Vital Signs Temperature 99.0 F 10/05/18 06:09 Pulse Rate 67 10/05/18 06:09 Respiratory Rate 18 10/05/18 06:09 Blood Pressure 130/70 10/05/18 06:09 O2 Sat by Pulse Oximetry (%) 97 10/04/18 09:00 Constitutional: Yes: No Distress Cardiovascular: Yes: Regular Rate and Rhythm Respiratory: Yes: CTA Bilaterally (no wheezing or rales.) Gastrointestinal: Yes: Soft (NT) Edema: No Edema: LLE: 2+ (appear to be acute gout ankle) Neurological: Yes: Alert, Oriented Labs: CBC, BMP 10/04/18 06:40 10/05/18 05:30 INR, PTT INR 1.34 (0.83-1.09) H 10/03/18 13:00 Laboratory Tests 10/04/18 10/05/18 06:40 05:30 WBC 6.3 Hgb 13.0 Plt Count 197 Sodium 138 Potassium 3.7 BUN 18 Creatinine 1.5 H - ....Imaging EKG: Image Reviewed Assessment/Plan 83 yo male with CAD s/p CABG, ICD (preserved LV function), Severe s/p TAVR in 2017 now with fall. 1) Fall -Unclear course of events but sounds like more mechanical fall rather then cardiogenic -tele unremarkable thus far -Device interrogation today -Needs supportive care to left ankle - no fracture on Xray; ? gout- will d/w PMD 2) Severe -s/p TAVR in 2016 with 26mm Kristian-3 valve -On last echo in 03/2018 there was preserved LV function with mild to moderate paravalvular leak and mild concentric LVH -No evidence of CHF on exam -Can be followed as outpatient 3) HTN -Controlled and continue current regimen 4) Afib -on DOAC -Will change to 2.5mg BID
[2018-10-05] MEDS: metoPROLOL SUCCINATE 25 MG TAB.SR.24H (FP) PO SCH (09:57)
[2018-10-05] MEDS: CLOPIDOGREL BISULFATE 75 MG TABLET (FP) PO SCH (09:57)
[2018-10-05] MEDS: APIXABAN 2.5 MG TABLET PO SCH ×2 (09:57→21:53)
[2018-10-05] MEDS: RANOLAZINE E.R. 500 MG TABLET (FP) PO SCH ×2 (09:57→21:53)
[2018-10-05] MEDS: CYANOCOBALAMIN (VITAMIN B-12) 1000 MCG/1 ML VIAL IM SCH (09:57)
[2018-10-05] MEDS: PANTOPRAZOLE 40 MG TABLET (FP) PO SCH (09:57)
--- NOTE | 2018-10-05 10:35 | EKG ---
Test Reason : Blood Pressure : / mmHG Vent. Rate : 073 BPM Atrial Rate : 073 BPM P-R Int : 220 ms QRS Dur : 104 ms QT Int : 400 ms P-R-T Axes : 030 -49 040 degrees QTc Int : 440 ms SINUS RHYTHM WITH 1ST DEGREE A-V BLOCK LEFT AXIS DEVIATION INFERIOR INFARCT (CITED ON OR BEFORE 31-AUG-2009) ABNORMAL ECG WHEN COMPARED WITH ECG OF 13-APR-2017 11:17, SC INTERVAL HAS INCREASED Confirmed by CLAIRE ROSENTHAL MD ([id number]) on 10/05/2018 10:35:27 AM Referred By: Confirmed By:CLAIRE ROSENTHAL MD
--- NOTE | 2018-10-05 12:20 | PN ---
Progress Note (short form) - Note Progress Note: Renal follow up for CKD Pt seen and examined at the bedside awake and alert complains of pain in left ankle no sob, cp, abd pain, N/V/D, fever making urine Vital Signs Temperature 98.0 F 10/05/18 11:28 Pulse Rate 69 10/05/18 11:28 Respiratory Rate 18 10/05/18 11:28 Blood Pressure 132/69 10/05/18 11:28 O2 Sat by Pulse Oximetry (%) 97 10/04/18 09:00 Intake & Output 10/02/18 10/03/18 10/04/18 10/05/18 23:59 23:59 23:59 23:59 Intake Total 680 0 Output Total 1200 Balance -520 0 Weight 64.864 kg 64.864 kg NAD awake and alert neck supple, no JVD RRR CTA soft NT/ND no LE edema, trace ankle swelling of left ankle. No tenderness CBC, BMP 10/04/18 06:40 10/05/18 05:30 Current Medications Apixaban (Eliquis -) 2.5 mg PO BID [facility] Last Admin: 10/05/18 09:57 Dose: 2.5 mg Clopidogrel Bisulfate (Plavix -) 75 mg PO DAILY [facility] Last Admin: 10/05/18 09:57 Dose: 75 mg Cyanocobalamin (Vitamin B12 Injection -) 1,000 mcg IM DAILY [facility] Last Admin: 10/05/18 09:57 Dose: 1,000 mcg Levothyroxine Sodium (Synthroid -) 50 mcg PO AM [facility] Last Admin: 10/05/18 06:01 Dose: 50 mcg Metoprolol Succinate (Toprol Xl -) 25 mg PO DAILY [facility] Last Admin: 10/05/18 09:57 Dose: 25 mg Pantoprazole Sodium (Protonix -) 40 mg PO DAILY [facility] Last Admin: 10/05/18 09:57 Dose: 40 mg Ranolazine (Ranexa -) 500 mg PO BID [facility] Last Admin: 10/05/18 09:57 Dose: 500 mg Rosuvastatin Calcium (Crestor -) 5 mg PO HS [facility] Last Admin: 10/04/18 21:36 Dose: 5 mg 83 year old gentleman with hx of Hypertension, HLD, CAD s/p CABG, AICD , Severe aortic stenosis who presented with near synope/fall and noted to have Cr of 1.5 #CKD stage 3 with stable renal function while inpatient #Near syncope/fall #CAD #Severe aortic stenosis Renal function stable thus far US w/o evidence of proteinuria ideally would benefit from JIMI/ARB but would clear with cardiology prior to starting as it can affect pre-load/after-load in patient with severe stable for discharge with outpatient follow up from renal perspective would avoid NSAIDS and other nephrotoxins if possible can consider steroid taper for ankle pain if gout is suspected check uric acid levels.
[2018-10-05] MEDS ORDERED: LEVOTHYROXINE NA 75 MCG TABLET (FP) PO SCH (14:03)
--- NOTE | 2018-10-05 14:04 | PN ---
Progress Note, Physician Chief Complaint: patient complaining of left ankle pain - Current Medication List Current Medications: Active Medications Apixaban (Eliquis -) 2.5 mg PO BID [facility] Last Admin: 10/05/18 09:57 Dose: 2.5 mg Clopidogrel Bisulfate (Plavix -) 75 mg PO DAILY [facility] Last Admin: 10/05/18 09:57 Dose: 75 mg Colchicine (Colcrys -) 0.6 mg PO DAILY [facility] Cyanocobalamin (Vitamin B12 Injection -) 1,000 mcg IM DAILY [facility] Last Admin: 10/05/18 09:57 Dose: 1,000 mcg Levothyroxine Sodium (Synthroid -) 50 mcg PO AM [facility] Last Admin: 10/05/18 06:01 Dose: 50 mcg Metoprolol Succinate (Toprol Xl -) 25 mg PO DAILY [facility] Last Admin: 10/05/18 09:57 Dose: 25 mg Pantoprazole Sodium (Protonix -) 40 mg PO DAILY [facility] Last Admin: 10/05/18 09:57 Dose: 40 mg Prednisone (Deltasone -) 20 mg PO DAILY [facility] Ranolazine (Ranexa -) 500 mg PO BID [facility] Last Admin: 10/05/18 09:57 Dose: 500 mg Rosuvastatin Calcium (Crestor -) 5 mg PO HS [facility] Last Admin: 10/04/18 21:36 Dose: 5 mg - Objective Vital Signs: Vital Signs Temperature 98.0 F 10/05/18 11:28 Pulse Rate 69 10/05/18 11:28 Respiratory Rate 18 10/05/18 11:28 Blood Pressure 132/69 10/05/18 11:28 O2 Sat by Pulse Oximetry (%) 97 10/04/18 09:00 Cardiovascular: Yes: Regular Rate and Rhythm, S1, S2 Respiratory: Yes: CTA Bilaterally Gastrointestinal: Yes: Normal Bowel Sounds, Soft Musculoskeletal: Yes: Other (left ankle warm tender to touch swollen) Labs: CBC, BMP 10/04/18 06:40 10/05/18 05:30 INR, PTT INR 1.34 (0.83-1.09) H 10/03/18 13:00 Problem List - Problems (1) Gout Assessment/Plan: uric acid level colchicine prednsione rhem consult ice packs Code(s): M10.9 - GOUT, UNSPECIFIED (2) CKD (chronic kidney disease) Assessment/Plan: renal on board creatinine in 1.5-1.6 range Code(s): N18.9 - CHRONIC KIDNEY DISEASE, UNSPECIFIED (3) Hypothyroid Assessment/Plan: tsh elevated increase synthroid Code(s): E03.9 - HYPOTHYROIDISM, UNSPECIFIED (4) Afib Assessment/Plan: on eliquis Code(s): I48.91 - UNSPECIFIED ATRIAL FIBRILLATION
[2018-10-05] MEDS ORDERED: COLCHICINE 0.6 MG TABLET (FP) PO ONE ×2 (14:30→17:15)
[2018-10-05] MEDS: predniSONE 10 MG TABLET (UD) PO ONE ×2 (15:35→17:25)
--- NOTE | 2018-10-05 16:44 | CONSULT ---
- Consultation REQUESTING PROVIDER: CONSULT REQUEST: We have been asked to surgically evaluate this patient for (PVD ). PCP:Kim Goyal HISTORY OF PRESENT ILLNESS: 83 y/o M w/ PMHx HTN, HLD, CAD s/p CABG in the past, AICD, afib on Eliquis, severe aortic stenosis admitted 10/03 with syncopy. Collar Starcher used, however pt is a poor historian. Majority of HPI taken from medical record, per EMR/pts daughter/:" Pt admitted after falling down stairs. Pt was found by his on the floor aware, no LOC. Family believes pt lost his balance, injured L ankle ". Pt reports ambulating unlimited without use of assisting devices prior to his fall. Has history of RFA to LLE veins. Denies h/o tobacco abuse, vascular surgery evaluation, rest pain, prior known arterial disease or evaluation. PMHx: as above PSHx: as above Home Medications Medication Instructions Recorded Apixaban [Eliquis] 2.5 mg PO DAILY 08/19/15 Colchicine 0.6 mg PO DAILY 08/19/15 Levothyroxine [Synthroid -] 50 mcg PO DAILY 08/19/15 Metoprolol Succinate [Toprol Xl -] 25 mg PO DAILY 08/19/15 Ranolazine [Ranexa] 500 mg PO BID 08/19/15 Rosuvastatin Calcium [Crestor] 5 mg PO HS 08/19/15 Clopidogrel Bisulfate [Plavix -] 75 mg PO DAILY 04/13/17 Pantoprazole Sodium 40 mg PO DAILY 04/13/17 Allergies Allergy/AdvReac Type Severity Reaction Status Date / Time No Known Allergies Allergy Verified 04/13/17 10:29 REVIEW OF SYSTEMS: CONSTITUTIONAL: Absent: fever, chills CARDIOVASCULAR: Absent: chest pain RESPIRATORY: Absent: cough, shortness of breath GASTROINTESTINAL: Absent: abdominal pain PHYSICAL EXAM: GENERAL: Awake, alert, and fully oriented, in no acute distress. HEAD: Normal with no signs of trauma. LUNGS: Unlabored on RA CV: rrr LOWER EXTREMITIES: B/L toes cool to touch, L>R. L second and third distal toes mottled with diminished cap refill >3seconds. No ulcerations. B/L wiggles toes, able to dorsi/plantarflex ankle. SILT b/l Vasc: 2+ b/l femorals, bounding pop b/l L>R, 1+ dp b/l, No PT on R, unable to appreciate L PT (erythematous and painful-pt delcined) Vital Signs Temperature 98.4 F 10/05/18 14:00 Pulse Rate 72 10/05/18 14:00 Respiratory Rate 20 10/05/18 14:00 Blood Pressure 159/79 10/05/18 14:00 O2 Sat by Pulse Oximetry (%) 97 10/04/18 09:00 Lab Results WBC 6.3 K/mm3 (4.0-10.0) 10/04/18 06:40 RBC 3.60 M/mm3 (4.00-5.60) L 10/04/18 06:40 Hgb 13.0 GM/dL (11.7-16.9) 10/04/18 06:40 Hct 36.5 % (35.4-49) 10/04/18 06:40 MCV 101.4 fl (80-96) H 10/04/18 06:40 MCHC 35.5 g/dl (32.0-35.9) 10/04/18 06:40 RDW 13.9 % (11.9-15.9) 10/04/18 06:40 Plt Count 197 K/MM3 (134-434) 10/04/18 06:40 Sodium 138 mmol/L (136-145) 10/05/18 05:30 Potassium 3.7 mmol/L (3.5-5.1) 10/05/18 05:30 Chloride 103 mmol/L (98-107) 10/05/18 05:30 Carbon Dioxide 26 mmol/L (21-32) 10/05/18 05:30 Anion Gap 8 MMOL/L (8-16) 10/05/18 05:30 BUN 18 mg/dL (7-18) 10/05/18 05:30 Creatinine 1.5 mg/dL (0.55-1.3) H 10/05/18 05:30 Random Glucose 124 mg/dL (74-106) H 10/05/18 05:30 Calcium 8.4 mg/dL (8.5-10.1) L 10/05/18 05:30 INR 1.34 (0.83-1.09) H 10/03/18 13:00 Arterial Duplex (10/03/18): Diminished flow is seen at the level of the left popliteal and posterior tibial arteries as noted above. Decreased monophasic flow is seen at the level of the left popliteal and posterior tibial arteries. The left common femoral and SFA demonstrate unremarkable triphasic flow. Evaluation of the right lower extremity demonstrates somewhat diminished biphasic flow at the level of the SFA, popliteal and TANK ASSEMBLER. The right common femoral artery demonstrates unremarkable triphasic. Foot xray: 10/03/18: No acute fracture or sublaxation. A/P: 83 y/o M w/ PMHx HTN, HLD, CAD s/p CABG in the past, AICD, afib on Eliquis , severe aortic stenosis admitted 10/03 with syncopy. Concern for Acute on chronic PVD vs embolization (?pop aneurysm, ?afib) -Dr Adhikari will be by shortly to see pt -Optimize creatinine pt will need CO2 angio this week -Continue Eliquis and Plavix d/w attending Dr Adhikari
--- NOTE | 2018-10-05 20:52 | CONSULT ---
Consult Consult Specialty:: Rheumatology - History of Present Illness History of Present Illness: 83-year-old male with a past medical history of gout, atrial fibrillation on Eliquis, coronary artery disease, s/p angioplasty and defibrillator. Aortic stenosis and s/p TIA. Admitted after a fall with subsequent left ankle pain and swelling even though there was no trauma to the foot. Patient per the medical record did not experience any loss of consciousness or head trauma, Gout. The patient reports a 3 year history of gouty arthritis. Recently he has had, on average, one episode of acute arthritis per month involvng mainly ankles, 1st toe an hands and he points to nodules (tophi) in the right index. Work-up on admission: Venous Doppler negative for DVT,. CBC with WBC of 5.9, INR 1.34, creatinine 1.5, eGFR 44 and Uric acid 8.0. X ray of the left ankle: mild degenerative changed. No erosions suggestive of gout. Today the patient received Prednsione 30 mg and Colchicine 0.6 mg PO. Apparently the patent is not on uric acid lowering medication at home. - History Source History Provided By: Medical Record - Past Medical History Cardio/Vascular: Yes: AFIB, Aortic Stenosis, CAD Rheumatology: Yes: Gout - Alcohol/Substance Use Hx Alcohol Use: No - Smoking History Smoking history: Former smoker Have you smoked in the past 12 months: No Home Medications - Allergies Allergies/Adverse Reactions: Allergies Allergy/AdvReac Type Severity Reaction Status Date / Time No Known Allergies Allergy Verified 04/13/17 10:29 - Home Medications Home Medications: Ambulatory Orders Apixaban [Eliquis] 2.5 mg PO DAILY 08/19/15 Colchicine 0.6 mg PO DAILY 08/19/15 Levothyroxine [Synthroid -] 50 mcg PO DAILY 08/19/15 Metoprolol Succinate [Toprol Xl -] 25 mg PO DAILY 08/19/15 Ranolazine [Ranexa] 500 mg PO BID 08/19/15 Rosuvastatin Calcium [Crestor] 5 mg PO HS 08/19/15 Clopidogrel Bisulfate [Plavix -] 75 mg PO DAILY 04/13/17 Pantoprazole Sodium 40 mg PO DAILY 04/13/17 Review of Systems - Review of Systems Constitutional: reports: Malaise Eyes: reports: No Symptoms HENT: reports: No Symptoms Neck: reports: No Symptoms Respiratory: reports: No Symptoms Gastrointestinal: reports: No Symptoms Musculoskeletal: reports: Other (See HPI) Physical Exam Vital Signs: Vital Signs Temperature 99.4 F 10/05/18 18:00 Pulse Rate 67 10/05/18 18:00 Respiratory Rate 18 10/05/18 18:00 Blood Pressure 156/73 10/05/18 18:00 O2 Sat by Pulse Oximetry (%) 97 10/04/18 09:00 Constitutional: Yes: Mild Distress Eyes: Yes: WNL HENT: Yes: WNL Neck: Yes: WNL Cardiovascular: Yes: WNL Respiratory: Yes: WNL Gastrointestinal: Yes: WNL Musculoskeletal: Yes: Other (Two tophi in the right index. The left ankle was tender and swollen.) Labs: CBC, BMP 10/04/18 06:40 10/05/18 05:30 Laboratory Tests 10/03/18 10/03/18 10/04/18 11:35 11:55 06:35 Uric Acid Calcium Total Bilirubin AST ALT Alkaline Phosphatase Creatine Kinase 83 Troponin I < 0.02 TSH 3.86 H D Urine pH 6.5 D Ur Specific Holly 1.021 Urine Protein Trace Urine Glucose (UA) Negative Urine Ketones Trace H Urine Blood Negative Urine Nitrite Negative Urine Bilirubin Negative Urine Urobilinogen 1.0 Ur Leukocyte Esterase 1+ H 10/05/18 05:30 Uric Acid 8.0 H Calcium 8.4 L Total Bilirubin 0.9 AST 21 ALT 14 Alkaline Phosphatase 65 Creatine Kinase Troponin I TSH Urine pH Ur Specific Holly Urine Protein Urine Glucose (UA) Urine Ketones Urine Blood Urine Nitrite Urine Bilirubin Urine Urobilinogen Ur Leukocyte Esterase Problem List - Problems (1) Gout Assessment/Plan: Acute gouty arthritis. Tophaceous disease. PROCEDURE. Under aseptic conditions I aspirated the left ankle, obtained 2 ml of slightly bloody fluid and injected 30 mg Depomedrol and 0.5 ml Lidocaine 1%. Fluid sent for cell count and crystal analysis. Prednisone 20 mg/d was prescribed for tomorrow. Plan: I suggest to start, in 1 week, Allopurinol 100 mg daily and increase the dose biweekly until Uric acid in 6 mg/dl or less (do not prescribe Uloric due to his cardiovascular disease). Code(s): M10.9 - GOUT, UNSPECIFIED
[2018-10-05] MEDS: ROSUVASTATIN CA 5 MG TABLET (FP) PO SCH (21:53)
[2018-10-05 22:41] LABS: SYNOVIAL FLUID SOURCE LEFT ANKLE
[2018-10-05 23:28] LABS: CRYSTALS,SYNOVIAL FLUID NEGATIVE; SYNOVIAL FLUID LYMPHOCYTES 17 %; SYNOVIAL FLUID NEUTROPHILS 68 %
[2018-10-06 06:23] LABS: BASO % 0.2 % (0-2.0); HEMATOCRIT 38.7 % (35.4-49); HEMOGLOBIN 14.2 GM/dL (11.7-16.9); LYMPH % 10.8 % (8-40); MCH 36.4 pg (25.7-33.7); MCHC 36.7 g/dl (32.0-35.9); MEAN CELL VOLUME 99.2 fl (80-96); MEAN PLT VOLUME 7.6 fl (7.5-11.1); MONO % 2.7 % (3.8-10.2); NEUT % 86.3 % (42.8-82.8); PLATELET COUNT 262 K/MM3 (134-434); RDW 13.4 % (11.9-15.9); WHITE BLOOD COUNT 5.2 K/mm3 (4.0-10.0)
[2018-10-06 06:45] LABS: ALBUMIN 3.8 g/dl (3.4-5.0); ALK PHOS 84 U/L (45-117); ANION GAP 9 MMOL/L (8-16); BILIRUBIN,TOTAL 0.9 mg/dL (0.2-1); BLOOD UREA NITROGEN 23 mg/dL (7-18); CALCIUM 9.1 mg/dL (8.5-10.1); CHLORIDE 103 mmol/L (98-107); CO2 24 mmol/L (21-32); CREATININE 1.6 mg/dL (0.55-1.3); GLUCOSE,RANDOM 129 mg/dL (74-106); POTASSIUM 4.3 mmol/L (3.5-5.1); SGOT/AST 26 U/L (15-37); SGPT/ALT 21 U/L (13-61); SODIUM 136 mmol/L (136-145); TOT PROT 7.7 g/dl (6.4-8.2)
[2018-10-06] MEDS: RANOLAZINE E.R. 500 MG TABLET (FP) PO SCH (09:14)
[2018-10-06] MEDS: metoPROLOL SUCCINATE 25 MG TAB.SR.24H (FP) PO SCH (09:14)
[2018-10-06] MEDS: CLOPIDOGREL BISULFATE 75 MG TABLET (FP) PO SCH (09:14)
[2018-10-06] MEDS: CYANOCOBALAMIN (VITAMIN B-12) 1000 MCG/1 ML VIAL IM SCH (09:14)
[2018-10-06] MEDS: APIXABAN 2.5 MG TABLET PO SCH (09:14)
[2018-10-06] MEDS: PANTOPRAZOLE 40 MG TABLET (FP) PO SCH (09:14)
[2018-10-06] MEDS ORDERED: predniSONE 20 MG TABLET (UD) PO SCH (10:00)
[2018-10-06] MEDS ORDERED: CHOLECALCIFEROL (VITAMIN D3) 1,000 UNIT TABLET (FP) PO SCH (10:00)
[2018-10-06] MEDS ORDERED: COLCHICINE 0.6 MG TABLET (FP) PO SCH (10:00)
--- NOTE | 2018-10-06 10:00 | DS ---
Physical Examination Vital Signs: Vital Signs Temperature 97.8 F 10/06/18 06:00 Pulse Rate 71 10/06/18 06:00 Respiratory Rate 18 10/06/18 08:32 Blood Pressure 160/80 10/06/18 06:00 O2 Sat by Pulse Oximetry (%) 97 10/04/18 09:00 Findings/Remarks: NO PAIN OR DISCOLORATION Cardiovascular: Yes: Regular Rate and Rhythm Respiratory: Yes: Regular, CTA Bilaterally Gastrointestinal: Yes: Normal Bowel Sounds, Soft Musculoskeletal: Yes: Joint Swelling, Other (NON TENEDER THIS AM) Labs: CBC, BMP 10/06/18 05:30 10/06/18 05:30 Discharge Summary Reason For Visit: PRE SYNCOPE Current Active Problems Afib (Acute) Aortic stenosis (Acute) CKD (chronic kidney disease) (Acute) Gout (Acute) Hypothyroid (Acute) Peripheral arterial disease (Acute) Pre-syncope (Acute) Weakness (Acute) Hospital Course: Problems (1) Gout Assessment/Plan: uric acid level colchicine prednsione rhem consult--NOTED--S/P INJECTION ice packs Code(s): M10.9 - GOUT, UNSPECIFIED (2) CKD (chronic kidney disease) Assessment/Plan: renal on board creatinine in 1.5-1.6 range Code(s): N18.9 - CHRONIC KIDNEY DISEASE, UNSPECIFIED (3) Hypothyroid Assessment/Plan: tsh elevated increase synthroid Code(s): E03.9 - HYPOTHYROIDISM, UNSPECIFIED (4) Afib Assessment/Plan: on eliquis Code(s): I48.91 - UNSPECIFIED ATRIAL FIBRILLATION (5) PAD Assessment/Plan: -Follow up with dr Adhikari Condition: Stable - Instructions Diet, Activity, Other Instructions: Follow up in office for labs and check on foot within one week Referrals: Jaylan Adhikari DO [Staff Physician] - 1 Week Kim Goyal MD [Primary Care Provider] - 1 Week - Home Medications Comprehensive Discharge Medication List: Ambulatory Orders Apixaban [Eliquis] 2.5 mg PO DAILY 08/19/15 Colchicine 0.6 mg PO DAILY 08/19/15 Levothyroxine [Synthroid -] 50 mcg PO DAILY 08/19/15 Metoprolol Succinate [Toprol XL -] 25 mg PO DAILY 08/19/15 Ranolazine [Ranexa] 500 mg PO BID 08/19/15 Rosuvastatin Calcium [Crestor] 5 mg PO HS 08/19/15 Clopidogrel Bisulfate [Plavix -] 75 mg PO DAILY 04/13/17 Pantoprazole Sodium 40 mg PO DAILY 04/13/17 predniSONE [Deltasone -] 20 mg PO DAILY #7 tablet 10/06/18
--- NOTE | 2018-10-06 11:38 | PN ---
Progress Note (short form) - Note Progress Note: s: no chest pain, palps, sob Current Medications Apixaban (Eliquis -) 2.5 mg PO BID [facility] Last Admin: 10/06/18 09:14 Dose: 2.5 mg Cholecalciferol (Vitamin D3 -) 1,000 unit PO DAILY [facility] Last Admin: 10/06/18 09:14 Dose: 1,000 unit Clopidogrel Bisulfate (Plavix -) 75 mg PO DAILY [facility] Last Admin: 10/06/18 09:14 Dose: 75 mg Colchicine (Colcrys -) 0.6 mg PO DAILY [facility] Last Admin: 10/06/18 09:14 Dose: 0.6 mg Cyanocobalamin (Vitamin B12 Injection -) 1,000 mcg IM DAILY [facility] Last Admin: 10/06/18 09:14 Dose: 1,000 mcg Levothyroxine Sodium (Synthroid -) 75 mcg PO AM [facility] Last Admin: 10/06/18 06:12 Dose: 75 mcg Metoprolol Succinate (Toprol Xl -) 25 mg PO DAILY [facility] Last Admin: 10/06/18 09:14 Dose: 25 mg Pantoprazole Sodium (Protonix -) 40 mg PO DAILY [facility] Last Admin: 10/06/18 09:14 Dose: 40 mg Prednisone (Deltasone -) 20 mg PO DAILY [facility] Last Admin: 10/06/18 09:14 Dose: 20 mg Ranolazine (Ranexa -) 500 mg PO BID [facility] Last Admin: 10/06/18 09:14 Dose: 500 mg Rosuvastatin Calcium (Crestor -) 5 mg PO HS [facility] Last Admin: 10/05/18 21:53 Dose: 5 mg Vital Signs Period Temp Pulse Resp BP Sys/[place] Pulse Ox Last 24 Hr 97.5 F-99.4 F 67-74 18-20 152-160/73-80 Constitutional: Yes: No Distress Cardiovascular: Yes: Regular Rate and Rhythm Respiratory: Yes: CTA Bilaterally (no wheezing or rales.) Gastrointestinal: Yes: Soft (NT) Edema: No Edema: LLE: 2+ (appear to be acute gout ankle) Neurological: Yes: Alert, Oriented tele: sinus Assessment/Plan 83 yo male with CAD s/p CABG, ICD (preserved LV function), Severe s/p TAVR in 2017 now with fall. 1) Fall -Unclear course of events but sounds like more mechanical fall rather then cardiogenic -tele unremarkable thus far -[employer] device interrogation 10/05 no events, no ATP 2) Severe -s/p TAVR in 2016 with 26mm Kristian-3 valve -On last echo in 03/2018 there was preserved LV function with mild to moderate paravalvular leak and mild concentric LVH -No evidence of CHF on exam -Can be followed as outpatient 3) HTN -Controlled and continue current regimen 4) Afib -cont eliquis 2.5mg BID 5) gout L ankle - rheum consulted 6) PAD - arterial duplex with diminished flow at L pop and PT arteries - evaluated by vascular - Dr. Adhikari, considering CO2 angio this week - no cardiac contraindication to CO2 angio
--- NOTE | 2018-10-06 11:53 | PN ---
Progress Note (short form) - Note Progress Note: Renal follow up for CKD Pt seen and examined at the bedside awake and alert has no acute complaints denies any sob, cp, abd pain reports that his ankle pain is improved making urine tolerating oral diet Vital Signs Temperature 97.8 F 10/06/18 06:00 Pulse Rate 71 10/06/18 06:00 Respiratory Rate 18 10/06/18 08:32 Blood Pressure 160/80 10/06/18 06:00 O2 Sat by Pulse Oximetry (%) 97 10/04/18 09:00 Intake & Output 10/03/18 10/04/18 10/05/18 10/06/18 23:59 23:59 23:59 23:59 Intake Total 680 420 10 Output Total 1200 700 400 Balance -520 -280 -390 Weight 64.864 kg 64.864 kg NAD RRR CTA soft NT/ND no LE edema CBC, BMP 10/06/18 05:30 10/06/18 05:30 Current Medications Apixaban (Eliquis -) 2.5 mg PO BID [facility] Last Admin: 10/06/18 09:14 Dose: 2.5 mg Cholecalciferol (Vitamin D3 -) 1,000 unit PO DAILY [facility] Last Admin: 10/06/18 09:14 Dose: 1,000 unit Clopidogrel Bisulfate (Plavix -) 75 mg PO DAILY [facility] Last Admin: 10/06/18 09:14 Dose: 75 mg Colchicine (Colcrys -) 0.6 mg PO DAILY [facility] Last Admin: 10/06/18 09:14 Dose: 0.6 mg Cyanocobalamin (Vitamin B12 Injection -) 1,000 mcg IM DAILY [facility] Last Admin: 10/06/18 09:14 Dose: 1,000 mcg Levothyroxine Sodium (Synthroid -) 75 mcg PO AM [facility] Last Admin: 10/06/18 06:12 Dose: 75 mcg Metoprolol Succinate (Toprol Xl -) 25 mg PO DAILY [facility] Last Admin: 10/06/18 09:14 Dose: 25 mg Pantoprazole Sodium (Protonix -) 40 mg PO DAILY [facility] Last Admin: 10/06/18 09:14 Dose: 40 mg Prednisone (Deltasone -) 20 mg PO DAILY [facility] Last Admin: 10/06/18 09:14 Dose: 20 mg Ranolazine (Ranexa -) 500 mg PO BID [facility] Last Admin: 10/06/18 09:14 Dose: 500 mg Rosuvastatin Calcium (Crestor -) 5 mg PO HS [facility] Last Admin: 10/05/18 21:53 Dose: 5 mg 83 year old gentleman with hx of Hypertension, HLD, CAD s/p CABG, AICD , Severe aortic stenosis who presented with near synope/fall and noted to have Cr of 1.5 #CKD stage 3 with stable renal function while inpatient #Near syncope/fall #CAD #Severe aortic stenosis Renal function stable thus far US w/o evidence of proteinuria ideally would benefit from JIMI/ARB but would clear with cardiology prior to starting as it can affect pre-load/after-load in patient with severe stable for discharge with outpatient follow up from renal [facility] contact information provided to have pt follow up in our office for CKD management.
[2018-10-06 19:45] VITALS: BP 134/70; PULSE 70; TEMP 98.2
== END 2018-10-06 18:36 | disposition home or self-care (01) | DRG 312 ==
LOC: JER 10:13 → JERBED 14:37 → J4W 10-04 00:13
PROVIDERS: ADMIT Family Medicine; ATTEND Family Medicine
PROC: 0Y9L3ZX Drainage of Left Ankle Region, Percutaneous Approach, Diagnostic (ICD-10-PCS; principal; 2018-10-05)
DX: R55 Syncope and collapse (principal); I35.0 Nonrheumatic aortic (valve) stenosis; R53.1 Weakness; I73.9 Peripheral vascular disease, unspecified; N18.3 Chronic kidney disease, stage 3 (moderate); I48.91 Unspecified atrial fibrillation; M10.9 Gout, unspecified; E78.5 Hyperlipidemia, unspecified; I25.10 Atherosclerotic heart disease of native coronary artery without angina pectoris; Z95.1 Presence of aortocoronary bypass graft; I12.9 Hypertensive chronic kidney disease with stage 1 through stage 4 chronic kidney disease, or unspecified chronic kidney disease; E03.9 Hypothyroidism, unspecified
CPT/HCPCS: 36415; 70450-TC; 71045-TC-FY; 73610-TC-LT-FY; 73630-TC-LT; 76775-TC; 76856-TC; 80053; 81003; 82043; 82306; 82550; 82570; 82607; 83735; 84439; 84443; 84484; 84550; 85025; 85610; 86593; 87086; 87804; 89051; 89060; 93005; 93010; 93925-TC; 93970-TC; 97116-GP; 97161-GP; 99283-25

== ENCOUNTER 2020-12-27 10:12 | Inpatient (IN) | payer OTHER ==
[2020-12-27 10:38] VITALS: BMI 26.5
[2020-12-27 11:41] LABS: BASO % 0.6 % (0-2.0); EOS % 3.9 % (0-4.5); HEMATOCRIT 37.9 % (35.4-49); HEMOGLOBIN 13.1 GM/dL (11.7-16.9); LYMPH % 25.6 % (8-40); MCH 34.7 pg (25.7-33.7); MCHC 34.7 g/dl (32.0-35.9); MEAN CELL VOLUME 100.1 fl (80-96); MEAN PLT VOLUME 7.7 fl (7.5-11.1); MONO % 9.9 % (3.8-10.2); PLATELET COUNT 213 10^3/uL (134-434); RBC 3.79 M/mm3 (4.00-5.60); RDW 13.8 % (11.9-15.9); WHITE BLOOD COUNT 4.4 K/mm3 (4.0-10.0)
[2020-12-27 11:50] LABS: INR 1.29 (0.83-1.09); PROTHROMBIN TIME (PATIENT) 15.7 SEC (9.7-13.0)
[2020-12-27 11:59] LABS: CHLORIDE 106 mmol/L (98-107); SODIUM 138 mmol/L (136-145)
[2020-12-27 12:01] LABS: CALCIUM 8.7 mg/dL (8.5-10.1)
[2020-12-27 12:02] LABS: ALBUMIN 3.7 g/dl (3.4-5.0); ANION GAP 6 MMOL/L (8-16); BLOOD UREA NITROGEN 25.8 mg/dL (7-18); CO2 26 mmol/L (21-32); GLUCOSE,RANDOM 119 mg/dL (74-106)
[2020-12-27 12:05] LABS: CREATININE 1.8 mg/dL (0.55-1.3); SGOT/AST 23 U/L (15-37); SGPT/ALT 22 U/L (13-61)
[2020-12-27 12:07] LABS: TOT PROT 7.2 g/dl (6.4-8.2)
[2020-12-27 12:08] LABS: ALK PHOS 65 U/L (45-117)
[2020-12-27] MEDS ORDERED: APIXABAN 2.5 MG TABLET PO ONE (15:32)
[2020-12-27] MEDS ORDERED: APIXABAN 2.5 MG TABLET ONE ×2 (16:37→21:13)
[2020-12-27] MEDS: APIXABAN 2.5 MG TABLET PO SCH (22:27)
[2020-12-27] MEDS: ROSUVASTATIN CA 5 MG TABLET (FP) PO SCH (22:27)
[2020-12-27] MEDS: RANOLAZINE E.R. 500 MG TABLET (FP) PO SCH (22:27)
[2020-12-28] MEDS: LEVOTHYROXINE NA 50 MCG TABLET (FP) PO SCH (06:31)
[2020-12-28 07:36] LABS: BASO % 1.3 % (0-2.0); EOS % 4.9 % (0-4.5); HEMATOCRIT 38.3 % (35.4-49); HEMOGLOBIN 13.4 GM/dL (11.7-16.9); LYMPH % 25.6 % (8-40); MCH 34.8 pg (25.7-33.7); MEAN CELL VOLUME 99.5 fl (80-96); MEAN PLT VOLUME 7.8 fl (7.5-11.1); MONO % 11.5 % (3.8-10.2); NEUT % 56.7 % (42.8-82.8); PLATELET COUNT 212 10^3/uL (134-434); RBC 3.85 M/mm3 (4.00-5.60); RDW 13.5 % (11.9-15.9); WHITE BLOOD COUNT 5.1 K/mm3 (4.0-10.0)
[2020-12-28] MEDS: predniSONE 20 MG TABLET (UD) PO SCH (09:47)
[2020-12-28] MEDS: APIXABAN 2.5 MG TABLET PO SCH ×2 (09:47→21:04)
[2020-12-28] MEDS: metoPROLOL SUCCINATE 25 MG TAB.SR.24H (FP) PO SCH (09:47)
[2020-12-28] MEDS: CLOPIDOGREL BISULFATE 75 MG TABLET (FP) PO SCH (09:47)
[2020-12-28] MEDS: PANTOPRAZOLE 40 MG TABLET PO SCH (09:47)
[2020-12-28] MEDS: RANOLAZINE E.R. 500 MG TABLET (FP) PO SCH ×2 (09:47→21:04)
[2020-12-28 10:17] LABS: ALBUMIN 3.9 g/dl (3.4-5.0); ALK PHOS 69 U/L (45-117); ANION GAP 8 MMOL/L (8-16); BILIRUBIN,TOTAL 0.8 mg/dL (0.2-1); BLOOD UREA NITROGEN 22.4 mg/dL (7-18); CALCIUM 8.8 mg/dL (8.5-10.1); CHLORIDE 105 mmol/L (98-107); CO2 26 mmol/L (21-32); CREATININE 1.4 mg/dL (0.55-1.3); GLUCOSE,RANDOM 96 mg/dL (74-106); MAGNESIUM 2.1 mg/dL (1.8-2.4); SGOT/AST 25 U/L (15-37); SGPT/ALT 23 U/L (13-61); SODIUM 139 mmol/L (136-145); TOT PROT 7.3 g/dl (6.4-8.2)
[2020-12-28] MEDS: ROSUVASTATIN CA 5 MG TABLET (FP) PO SCH (21:04)
[2020-12-29] MEDS: LEVOTHYROXINE NA 50 MCG TABLET (FP) PO SCH (06:11)
[2020-12-29 09:07] VITALS: BP 180/86; PULSE 70; TEMP 97.8
[2020-12-29] MEDS: PANTOPRAZOLE 40 MG TABLET PO SCH (09:07)
[2020-12-29] MEDS: predniSONE 20 MG TABLET (UD) PO SCH (09:07)
[2020-12-29] MEDS: metoPROLOL SUCCINATE 25 MG TAB.SR.24H (FP) PO SCH (09:07)
[2020-12-29] MEDS: RANOLAZINE E.R. 500 MG TABLET (FP) PO SCH (09:07)
[2020-12-29] MEDS: CLOPIDOGREL BISULFATE 75 MG TABLET (FP) PO SCH (09:07)
[2020-12-29] MEDS: APIXABAN 2.5 MG TABLET PO SCH (09:07)
[2020-12-29] MEDS ORDERED: LOSARTAN POTASSIUM 25 MG TABLET PO SCH (18:00)
== END 2020-12-29 12:45 | disposition home health service (06) | DRG 312 ==
LOC: JER 10:12 → JERBED 15:18 → J4W 23:08
PROVIDERS: ADMIT Family Medicine; ATTEND Family Medicine
PROC: 4B02XTZ Measurement of Cardiac Defibrillator, External Approach (ICD-10-PCS; principal; 2020-12-27)
DX: R55 Syncope and collapse (principal); I42.9 Cardiomyopathy, unspecified; I25.10 Atherosclerotic heart disease of native coronary artery without angina pectoris; I12.9 Hypertensive chronic kidney disease with stage 1 through stage 4 chronic kidney disease, or unspecified chronic kidney disease; E78.5 Hyperlipidemia, unspecified; M10.9 Gout, unspecified; Z95.1 Presence of aortocoronary bypass graft; I48.0 Paroxysmal atrial fibrillation; Z79.01 Long term (current) use of anticoagulants; Z95.2 Presence of prosthetic heart valve; N18.9 Chronic kidney disease, unspecified; I49.9 Cardiac arrhythmia, unspecified; I77.819 Aortic ectasia, unspecified site; I73.9 Peripheral vascular disease, unspecified; Z95.810 Presence of automatic (implantable) cardiac defibrillator
CPT/HCPCS: 36415; 70450-TC; 71045-TC-FY; 80053; 82550; 83735; 84443; 84484; 85025; 85610; 93005; 93010; 99285-25; C9803; U0003; U0005

== ENCOUNTER 2021-01-07 09:08 | Inpatient (IN) | payer OTHER ==
[2021-01-07 09:35] VITALS: BMI 25.6
[2021-01-07] MEDS ORDERED: SODIUM CHLORIDE 1,905 ML IV ONE (09:44)
[2021-01-07] MEDS ORDERED: SODIUM CHLORIDE 0.9% 500 ML INFUS.BAG IV ONE (10:11)
[2021-01-07 10:18] LABS: BASO % 0.2 % (0-2.0); EOS % 0.3 % (0-4.5); HEMATOCRIT 40.4 % (35.4-49); HEMOGLOBIN 13.9 GM/dL (11.7-16.9); LYMPH % 10.7 % (8-40); MCH 34.2 pg (25.7-33.7); MCHC 34.5 g/dl (32.0-35.9); MEAN CELL VOLUME 99.2 fl (80-96); MONO % 5.6 % (3.8-10.2); NEUT % 83.2 % (42.8-82.8); PLATELET COUNT 197 10^3/uL (134-434); RBC 4.07 M/mm3 (4.00-5.60); RDW 13.6 % (11.9-15.9)
[2021-01-07 10:24] LABS: INR 1.22 (0.83-1.09); PROTHROMBIN TIME (PATIENT) 14.9 SEC (9.7-13.0)
[2021-01-07 10:27] LABS: ACTIVATED PTT 30.4 SECONDS (25.2-36.5)
[2021-01-07 10:42] LABS: ALBUMIN 3.7 g/dl (3.4-5.0); MAGNESIUM 1.9 mg/dL (1.8-2.4)
[2021-01-07 10:45] LABS: CREATININE 2.3 mg/dL (0.55-1.3)
[2021-01-07 10:46] LABS: BILIRUBIN,TOTAL 0.7 mg/dL (0.2-1); TOT PROT 6.9 g/dl (6.4-8.2)
[2021-01-07 10:48] LABS: N-TERMINAL BNP 5259.7 pg/ml (5-450)
[2021-01-07 11:14] LABS: LACTIC ACID 2.6 mmol/L (0.4-2.0)
[2021-01-07 12:23] LABS: URINE APPEARANCE CLEAR; URINE BILIRUBIN NEGATIVE (NEGATIVE); URINE COLOR YELLOW; URINE GLUCOSE (UA) NEGATIVE (NEGATIVE); URINE KETONE NEGATIVE (NEGATIVE); URINE LEUK ESTERASE NEGATIVE (NEGATIVE); URINE NITRITE NEGATIVE (NEGATIVE); URINE PROTEIN NEGATIVE (NEGATIVE)
[2021-01-07] MEDS: ACETAMINOPHEN 325 MG TABLET (FP) PO PRN (17:55)
[2021-01-07] MEDS: ROSUVASTATIN CA 5 MG TABLET PO SCH (21:02)
[2021-01-07] MEDS: RANOLAZINE E.R. 500 MG TABLET (FP) PO SCH (21:02)
[2021-01-07] MEDS: APIXABAN 2.5 MG TABLET PO SCH (21:02)
[2021-01-07] MEDS ORDERED: VANCOMYCIN 1 GRAM (PRE-DOCKED) 1,000 MG/250 ML BAG IVPB ONE (23:25)
[2021-01-08] MEDS ORDERED: ACETAMINOPHEN 325 MG TABLET (FP) PO PRN
[2021-01-08] MEDS: ACETAMINOPHEN 325 MG TABLET (FP) PO PRN (01:36)
[2021-01-08] MEDS: LEVOTHYROXINE NA 50 MCG TABLET (FP) PO SCH (06:15)
[2021-01-08] MEDS ORDERED: PIPERACILLIN/TAZOBACTAM 2.25 GM VIAL IVPB ONE (08:27)
[2021-01-08] MEDS ORDERED: DEXTROSE 5%-WATER - 50 ML IVPB ONE (08:27)
[2021-01-08] MEDS: RANOLAZINE E.R. 500 MG TABLET (FP) PO SCH ×2 (09:28→21:22)
[2021-01-08] MEDS: APIXABAN 2.5 MG TABLET PO SCH ×2 (09:28→21:22)
[2021-01-08] MEDS: metoPROLOL SUCCINATE 25 MG TAB.SR.24H (FP) PO SCH (09:28)
[2021-01-08] MEDS: PANTOPRAZOLE 40 MG TABLET PO SCH (09:28)
[2021-01-08] MEDS ORDERED: LOSARTAN POTASSIUM 50 MG TABLET PO SCH (10:00)
[2021-01-08] MEDS ORDERED: PIPERACILLIN/TAZOB 2.25 GM 2.25 GM in DEXTROSE 5%-WATER - 50 ML IVPB SCH ×2 (10:00→18:00)
[2021-01-08] MEDS ORDERED: VANCOMYCIN 1 GRAM (PRE-DOCKED) 1,000 MG/250 ML BAG IVPB ONE (10:02)
[2021-01-08] MEDS ORDERED: PT OWN MED DRAWER 7, Y5N ONE (10:27)
[2021-01-08] MEDS ORDERED: DEXTROSE 5%-WATER 100 ML IVPB ONE (13:28)
[2021-01-08] MEDS: CEFTRIAXONE 2 GM in DEXTROSE 5%-WATER 2 GM/100 ML BAG IVPB SCH (13:30)
[2021-01-08] MEDS ORDERED: SODIUM CHLORIDE 250 ML IV STA (17:24)
[2021-01-08] MEDS: ROSUVASTATIN CA 5 MG TABLET PO SCH (21:22)
[2021-01-09] MEDS: LEVOTHYROXINE NA 50 MCG TABLET (FP) PO SCH (06:01)
[2021-01-09 07:00] LABS: BASO % 0.7 % (0-2.0); EOS % 2.5 % (0-4.5); HEMATOCRIT 35.7 % (35.4-49); HEMOGLOBIN 12.4 GM/dL (11.7-16.9); LYMPH % 19.6 % (8-40); MCH 34.4 pg (25.7-33.7); MCHC 34.6 g/dl (32.0-35.9); MEAN CELL VOLUME 99.5 fl (80-96); MEAN PLT VOLUME 8.4 fl (7.5-11.1); MONO % 16.4 % (3.8-10.2); NEUT % 60.8 % (42.8-82.8); PLATELET COUNT 142 10^3/uL (134-434); RBC 3.59 M/mm3 (4.00-5.60); RDW 13.5 % (11.9-15.9); WHITE BLOOD COUNT 6.3 K/mm3 (4.0-10.0)
[2021-01-09 07:25] LABS: BLOOD UREA NITROGEN 23.3 mg/dL (7-18); CALCIUM 8.6 mg/dL (8.5-10.1)
[2021-01-09 07:27] LABS: BILIRUBIN,TOTAL 0.5 mg/dL (0.2-1); TOT PROT 6.2 g/dl (6.4-8.2)
[2021-01-09 07:29] LABS: CREATININE 1.5 mg/dL (0.55-1.3)
[2021-01-09] MEDS ORDERED: DEXTROSE 5%-WATER 100 ML IVPB ONE ×3 (08:52→21:08)
[2021-01-09] MEDS: APIXABAN 2.5 MG TABLET PO SCH ×2 (09:26→21:21)
[2021-01-09] MEDS: PANTOPRAZOLE 40 MG TABLET PO SCH (09:26)
[2021-01-09] MEDS: CEFTRIAXONE 2 GM in DEXTROSE 5%-WATER 2 GM/100 ML BAG IVPB SCH ×2 (09:26→21:44)
[2021-01-09] MEDS: CLOPIDOGREL BISULFATE 75 MG TABLET (FP) PO SCH (09:26)
[2021-01-09] MEDS: metoPROLOL SUCCINATE 25 MG TAB.SR.24H (FP) PO SCH (09:26)
[2021-01-09] MEDS: RANOLAZINE E.R. 500 MG TABLET (FP) PO SCH ×2 (09:26→21:21)
[2021-01-09 09:30] LABS: ANISOCYTOSIS 0; MACROCYTOSIS 1+; PLATELET ESTIMATE DECREASED
[2021-01-09] MEDS ORDERED: VANCOMYCIN 1 GRAM (PRE-DOCKED) 1,000 MG/250 ML BAG IVPB ONE (15:43)
[2021-01-09] MEDS ORDERED: CEFTRIAXONE 2 GM in DEXTROSE 5%-WATER 2 GM/100 ML BAG IVPB SCH (15:45)
[2021-01-09] MEDS: ROSUVASTATIN CA 5 MG TABLET PO SCH (21:21)
[2021-01-09] MEDS: AMPICILLIN - 2 GM in SODIUM CHLORIDE 100 ML IVPB SCH (23:19)
[2021-01-10] MEDS: AMPICILLIN - 2 GM in SODIUM CHLORIDE 100 ML IVPB SCH ×4 (02:09→22:26)
[2021-01-10] MEDS: LEVOTHYROXINE NA 50 MCG TABLET (FP) PO SCH (06:00)
[2021-01-10] MEDS ORDERED: DEXTROSE 5%-WATER 100 ML IVPB ONE ×2 (08:49→20:48)
[2021-01-10] MEDS: CEFTRIAXONE 2 GM in DEXTROSE 5%-WATER 2 GM/100 ML BAG IVPB SCH ×2 (09:14→21:30)
[2021-01-10] MEDS: RANOLAZINE E.R. 500 MG TABLET (FP) PO SCH ×2 (09:15→21:30)
[2021-01-10] MEDS: metoPROLOL SUCCINATE 25 MG TAB.SR.24H (FP) PO SCH (09:15)
[2021-01-10] MEDS: PANTOPRAZOLE 40 MG TABLET PO SCH (09:15)
[2021-01-10] MEDS: CLOPIDOGREL BISULFATE 75 MG TABLET (FP) PO SCH (09:15)
[2021-01-10] MEDS: APIXABAN 2.5 MG TABLET PO SCH ×2 (09:15→21:30)
[2021-01-10] MEDS ORDERED: LOSARTAN POTASSIUM 25 MG TABLET PO ONE (11:57)
[2021-01-10] MEDS: ROSUVASTATIN CA 5 MG TABLET PO SCH (21:30)
[2021-01-10] MEDS ORDERED: PT OWN MED DRAWER 7, Y5N ONE (22:01)
[2021-01-11] MEDS ORDERED: PT OWN MED DRAWER 7, Y5N ONE ×4 (01:01→20:16)
[2021-01-11] MEDS: AMPICILLIN - 2 GM in SODIUM CHLORIDE 100 ML IVPB SCH ×4 (02:00→20:43)
[2021-01-11] MEDS: LEVOTHYROXINE NA 50 MCG TABLET (FP) PO SCH (06:33)
[2021-01-11 07:08] LABS: BASO % 0.9 % (0-2.0); EOS % 4.6 % (0-4.5); HEMATOCRIT 36.2 % (35.4-49); HEMOGLOBIN 12.7 GM/dL (11.7-16.9); LYMPH % 26.4 % (8-40); MCH 34.6 pg (25.7-33.7); MCHC 35.2 g/dl (32.0-35.9); MEAN CELL VOLUME 98.2 fl (80-96); MEAN PLT VOLUME 7.8 fl (7.5-11.1); MONO % 11.7 % (3.8-10.2); NEUT % 56.4 % (42.8-82.8); PLATELET COUNT 178 10^3/uL (134-434); RBC 3.68 M/mm3 (4.00-5.60); RDW 13.6 % (11.9-15.9); WHITE BLOOD COUNT 5.8 K/mm3 (4.0-10.0)
[2021-01-11 07:34] LABS: ALBUMIN 3.2 g/dl (3.4-5.0)
[2021-01-11 07:35] LABS: BLOOD UREA NITROGEN 17.9 mg/dL (7-18)
[2021-01-11 07:39] LABS: TOT PROT 6.6 g/dl (6.4-8.2)
[2021-01-11 07:45] LABS: CREATININE 1.5 mg/dL (0.55-1.3)
[2021-01-11 07:46] LABS: BILIRUBIN,TOTAL 0.4 mg/dL (0.2-1)
[2021-01-11] MEDS ORDERED: DEXTROSE 5%-WATER 100 ML IVPB ONE ×2 (09:49→21:01)
[2021-01-11] MEDS: APIXABAN 2.5 MG TABLET PO SCH ×2 (10:07→22:04)
[2021-01-11] MEDS: metoPROLOL SUCCINATE 25 MG TAB.SR.24H (FP) PO SCH (10:07)
[2021-01-11] MEDS: RANOLAZINE E.R. 500 MG TABLET (FP) PO SCH ×2 (10:07→22:04)
[2021-01-11] MEDS: PANTOPRAZOLE 40 MG TABLET PO SCH (10:07)
[2021-01-11] MEDS: CEFTRIAXONE 2 GM in DEXTROSE 5%-WATER 2 GM/100 ML BAG IVPB SCH ×2 (10:07→22:04)
[2021-01-11] MEDS: CLOPIDOGREL BISULFATE 75 MG TABLET (FP) PO SCH (10:07)
[2021-01-11] MEDS: LOSARTAN POTASSIUM 50 MG TABLET PO SCH (15:30)
[2021-01-11] MEDS: ROSUVASTATIN CA 5 MG TABLET PO SCH (22:04)
[2021-01-12] MEDS: AMPICILLIN - 2 GM in SODIUM CHLORIDE 100 ML IVPB SCH ×5 (02:20→22:00)
[2021-01-12] MEDS: LEVOTHYROXINE NA 50 MCG TABLET (FP) PO SCH (06:12)
[2021-01-12] MEDS ORDERED: PT OWN MED DRAWER 7, Y5N ONE ×3 (08:48→22:22)
[2021-01-12] MEDS ORDERED: DEXTROSE 5%-WATER 100 ML IVPB ONE (08:49)
[2021-01-12] MEDS: PANTOPRAZOLE 40 MG TABLET PO SCH (09:30)
[2021-01-12] MEDS: LOSARTAN POTASSIUM 50 MG TABLET PO SCH (09:30)
[2021-01-12] MEDS: APIXABAN 2.5 MG TABLET PO SCH ×2 (09:30→22:23)
[2021-01-12] MEDS: CLOPIDOGREL BISULFATE 75 MG TABLET (FP) PO SCH (09:30)
[2021-01-12] MEDS: metoPROLOL SUCCINATE 25 MG TAB.SR.24H (FP) PO SCH (09:30)
[2021-01-12] MEDS: RANOLAZINE E.R. 500 MG TABLET (FP) PO SCH ×2 (09:30→22:23)
[2021-01-12] MEDS: CEFTRIAXONE 2 GM in DEXTROSE 5%-WATER 2 GM/100 ML BAG IVPB SCH ×2 (09:36→22:24)
[2021-01-12] MEDS: ROSUVASTATIN CA 5 MG TABLET PO SCH (22:23)
[2021-01-13] MEDS: AMPICILLIN - 2 GM in SODIUM CHLORIDE 100 ML IVPB SCH ×6 (02:32→22:29)
[2021-01-13] MEDS ORDERED: PT OWN MED DRAWER 7, Y5N ONE ×5 (05:04→21:37)
[2021-01-13] MEDS: LEVOTHYROXINE NA 50 MCG TABLET (FP) PO SCH ×2 (05:40→13:03)
[2021-01-13] MEDS ORDERED: DEXTROSE 5%-WATER 100 ML IVPB ONE ×2 (09:40→21:37)
[2021-01-13] MEDS: RANOLAZINE E.R. 500 MG TABLET (FP) PO SCH ×2 (09:45→21:39)
[2021-01-13] MEDS: CLOPIDOGREL BISULFATE 75 MG TABLET (FP) PO SCH (09:46)
[2021-01-13] MEDS: PANTOPRAZOLE 40 MG TABLET PO SCH (09:46)
[2021-01-13] MEDS: APIXABAN 2.5 MG TABLET PO SCH ×2 (09:46→21:39)
[2021-01-13] MEDS: metoPROLOL SUCCINATE 25 MG TAB.SR.24H (FP) PO SCH (09:46)
[2021-01-13] MEDS: LOSARTAN POTASSIUM 50 MG TABLET PO SCH (09:46)
[2021-01-13] MEDS: CEFTRIAXONE 2 GM in DEXTROSE 5%-WATER 2 GM/100 ML BAG IVPB SCH ×2 (09:47→21:39)
[2021-01-13] MEDS: ROSUVASTATIN CA 5 MG TABLET PO SCH (21:39)
[2021-01-14] MEDS ORDERED: PT OWN MED DRAWER 7, Y5N ONE ×2 (01:15→08:47)
[2021-01-14] MEDS: AMPICILLIN - 2 GM in SODIUM CHLORIDE 100 ML IVPB SCH ×6 (02:10→21:52)
[2021-01-14] MEDS: LEVOTHYROXINE NA 50 MCG TABLET (FP) PO SCH (06:47)
[2021-01-14 08:18] LABS: BASO % 0.5 % (0-2.0); EOS % 5.2 % (0-4.5); HEMATOCRIT 34.8 % (35.4-49); HEMOGLOBIN 12.1 GM/dL (11.7-16.9); LYMPH % 21.3 % (8-40); MCH 34.4 pg (25.7-33.7); MCHC 34.8 g/dl (32.0-35.9); MEAN CELL VOLUME 98.8 fl (80-96); MEAN PLT VOLUME 7.2 fl (7.5-11.1); MONO % 8.1 % (3.8-10.2); NEUT % 64.9 % (42.8-82.8); PLATELET COUNT 248 10^3/uL (134-434); RBC 3.52 M/mm3 (4.00-5.60); RDW 13.3 % (11.9-15.9); WHITE BLOOD COUNT 7.9 K/mm3 (4.0-10.0)
[2021-01-14 08:37] LABS: ALBUMIN 3.4 g/dl (3.4-5.0); CALCIUM 8.8 mg/dL (8.5-10.1)
[2021-01-14 08:38] LABS: BLOOD UREA NITROGEN 22.2 mg/dL (7-18)
[2021-01-14 08:41] LABS: CREATININE 1.5 mg/dL (0.55-1.3)
[2021-01-14 08:42] LABS: TOT PROT 6.8 g/dl (6.4-8.2)
[2021-01-14 08:44] LABS: BILIRUBIN,TOTAL 0.3 mg/dL (0.2-1)
[2021-01-14] MEDS ORDERED: DEXTROSE 5%-WATER 100 ML IVPB ONE ×2 (08:46→19:40)
[2021-01-14] MEDS: LOSARTAN POTASSIUM 50 MG TABLET PO SCH (09:23)
[2021-01-14] MEDS: PANTOPRAZOLE 40 MG TABLET PO SCH (09:23)
[2021-01-14] MEDS: metoPROLOL SUCCINATE 25 MG TAB.SR.24H (FP) PO SCH (09:23)
[2021-01-14] MEDS: RANOLAZINE E.R. 500 MG TABLET (FP) PO SCH ×2 (09:23→21:30)
[2021-01-14] MEDS: CEFTRIAXONE 2 GM in DEXTROSE 5%-WATER 2 GM/100 ML BAG IVPB SCH ×2 (09:23→21:30)
[2021-01-14] MEDS: APIXABAN 2.5 MG TABLET PO SCH ×2 (09:23→21:30)
[2021-01-14] MEDS: CLOPIDOGREL BISULFATE 75 MG TABLET (FP) PO SCH (09:23)
[2021-01-14] MEDS: ROSUVASTATIN CA 5 MG TABLET PO SCH (21:30)
[2021-01-15] MEDS ORDERED: PT OWN MED DRAWER 7, Y5N ONE ×5 (01:09→21:29)
[2021-01-15] MEDS: AMPICILLIN - 2 GM in SODIUM CHLORIDE 100 ML IVPB SCH ×6 (01:10→21:36)
[2021-01-15] MEDS: LEVOTHYROXINE NA 50 MCG TABLET (FP) PO SCH (05:59)
[2021-01-15 08:08] LABS: BASO % 0.4 % (0-2.0); EOS % 3.4 % (0-4.5); LYMPH % 16.7 % (8-40); MCH 34.8 pg (25.7-33.7); MCHC 35.4 g/dl (32.0-35.9); MEAN CELL VOLUME 98.4 fl (80-96); MEAN PLT VOLUME 7.2 fl (7.5-11.1); MONO % 6.6 % (3.8-10.2); NEUT % 72.9 % (42.8-82.8); PLATELET COUNT 284 10^3/uL (134-434); RBC 3.45 M/mm3 (4.00-5.60); RDW 13.7 % (11.9-15.9); WHITE BLOOD COUNT 8.4 K/mm3 (4.0-10.0)
[2021-01-15 08:29] LABS: CALCIUM 8.6 mg/dL (8.5-10.1)
[2021-01-15 08:30] LABS: ALBUMIN 3.3 g/dl (3.4-5.0); BLOOD UREA NITROGEN 18.8 mg/dL (7-18)
[2021-01-15 08:31] LABS: CREATININE 1.5 mg/dL (0.55-1.3)
[2021-01-15 08:33] LABS: BILIRUBIN,TOTAL 0.5 mg/dL (0.2-1); TOT PROT 6.7 g/dl (6.4-8.2)
[2021-01-15] MEDS ORDERED: DEXTROSE 5%-WATER 100 ML IVPB ONE ×2 (09:10→21:29)
[2021-01-15] MEDS: CEFTRIAXONE 2 GM in DEXTROSE 5%-WATER 2 GM/100 ML BAG IVPB SCH ×2 (09:25→22:12)
[2021-01-15] MEDS: RANOLAZINE E.R. 500 MG TABLET (FP) PO SCH ×2 (09:26→21:36)
[2021-01-15] MEDS: APIXABAN 2.5 MG TABLET PO SCH ×2 (09:26→21:37)
[2021-01-15] MEDS: CLOPIDOGREL BISULFATE 75 MG TABLET (FP) PO SCH (09:26)
[2021-01-15] MEDS: LOSARTAN POTASSIUM 50 MG TABLET PO SCH (09:26)
[2021-01-15] MEDS: PANTOPRAZOLE 40 MG TABLET PO SCH (09:26)
[2021-01-15] MEDS: metoPROLOL SUCCINATE 25 MG TAB.SR.24H (FP) PO SCH (09:56)
[2021-01-15] MEDS: ROSUVASTATIN CA 5 MG TABLET PO SCH (21:37)
[2021-01-16] MEDS ORDERED: PT OWN MED DRAWER 7, Y5N ONE ×2 (01:08→08:44)
[2021-01-16] MEDS: AMPICILLIN - 2 GM in SODIUM CHLORIDE 100 ML IVPB SCH ×3 (01:32→09:47)
[2021-01-16] MEDS ORDERED: hydrALAZINE HCL 20 MG/ML VIAL IVPUSH ONE (01:50)
[2021-01-16] MEDS: LEVOTHYROXINE NA 50 MCG TABLET (FP) PO SCH (06:09)
[2021-01-16] MEDS ORDERED: DEXTROSE 5%-WATER 100 ML IVPB ONE (08:43)
[2021-01-16] MEDS: PANTOPRAZOLE 40 MG TABLET PO SCH (09:42)
[2021-01-16] MEDS: CEFTRIAXONE 2 GM in DEXTROSE 5%-WATER 2 GM/100 ML BAG IVPB SCH (09:42)
[2021-01-16] MEDS: APIXABAN 2.5 MG TABLET PO SCH (09:42)
[2021-01-16] MEDS: LOSARTAN POTASSIUM 50 MG TABLET PO SCH (09:42)
[2021-01-16] MEDS: metoPROLOL SUCCINATE 25 MG TAB.SR.24H (FP) PO SCH (09:42)
[2021-01-16] MEDS: CLOPIDOGREL BISULFATE 75 MG TABLET (FP) PO SCH (09:42)
[2021-01-16] MEDS: RANOLAZINE E.R. 500 MG TABLET (FP) PO SCH (09:42)
[2021-01-16 15:07] VITALS: BP 134/65; PULSE 52; TEMP 98.2
== END 2021-01-16 18:41 | disposition home health service (06) | DRG 289 ==
LOC: JER 09:08 → JERBED 12:16 → J4W 14:11
PROVIDERS: ADMIT Family Medicine; ATTEND Family Medicine
PROC: 02HV33Z Insertion of Infusion Device into Superior Vena Cava, Percutaneous Approach (ICD-10-PCS; principal; 2021-01-16)
PROC: B518ZZA Fluoroscopy of Superior Vena Cava, Guidance (ICD-10-PCS; 2021-01-16)
DX: I33.0 Acute and subacute infective endocarditis (principal); N17.9 Acute kidney failure, unspecified; R78.81 Bacteremia; E87.2 Acidosis; I95.9 Hypotension, unspecified; I25.10 Atherosclerotic heart disease of native coronary artery without angina pectoris; Z95.1 Presence of aortocoronary bypass graft; B95.2 Enterococcus as the cause of diseases classified elsewhere; R41.82 Altered mental status, unspecified; N18.9 Chronic kidney disease, unspecified; Z95.810 Presence of automatic (implantable) cardiac defibrillator; E78.5 Hyperlipidemia, unspecified; I35.0 Nonrheumatic aortic (valve) stenosis
CPT/HCPCS: 36415; 36569; 70450-TC; 71045-TC-FY; 77001-TC-FY; 80053; 81003; 82550; 82962; 83605; 83735; 83880; 84439; 84443; 84484; 85025; 85610; 85651; 85730; 86140; 87040; 87086; 87186; 93005; 93010; 93306-TC; 93308; 97116-GP; 97161-GP; 99285-25; C1751; C9803; G0480; U0003; U0005

== ENCOUNTER 2021-01-31 17:03 | Inpatient (IN) | payer OTHER ==
[2021-01-31] MEDS ORDERED: VANCOMYCIN 1 GM in D5W (PRE-DOCKED) 1,000 MG/250 ML IVPB ONE (18:06)
[2021-01-31] MEDS ORDERED: VANCOMYCIN 1 GRAM (PRE-DOCKED) 1,000 MG/250 ML BAG IVPB ONE (18:41)
[2021-01-31 18:51] LABS: BASO % 0.4 % (0-2.0); EOS % 3.2 % (0-4.5); HEMATOCRIT 29.2 % (35.4-49); HEMOGLOBIN 10.2 GM/dL (11.7-16.9); LYMPH % 8.9 % (8-40); MCH 34.2 pg (25.7-33.7); MCHC 35.1 g/dl (32.0-35.9); MEAN CELL VOLUME 97.4 fl (80-96); MEAN PLT VOLUME 7.3 fl (7.5-11.1); MONO % 14.8 % (3.8-10.2); NEUT % 72.7 % (42.8-82.8); PLATELET COUNT 203 10^3/uL (134-434); RDW 14.3 % (11.9-15.9); WHITE BLOOD COUNT 5.6 K/mm3 (4.0-10.0)
[2021-01-31 18:59] LABS: INR 1.62 (0.83-1.09); PROTHROMBIN TIME (PATIENT) 19.6 SEC (9.7-13.0)
[2021-01-31 19:01] LABS: ACTIVATED PTT 31.4 SECONDS (25.2-36.5)
[2021-01-31 19:16] LABS: ALBUMIN 2.9 g/dl (3.4-5.0); BLOOD UREA NITROGEN 13.1 mg/dL (7-18); CALCIUM 7.8 mg/dL (8.5-10.1)
[2021-01-31 19:17] LABS: MAGNESIUM 1.5 mg/dL (1.8-2.4)
[2021-01-31 19:19] LABS: CREATININE 1.3 mg/dL (0.55-1.3)
[2021-01-31 19:21] LABS: BILIRUBIN,TOTAL 0.5 mg/dL (0.2-1); TOT PROT 6.4 g/dl (6.4-8.2)
[2021-01-31 19:25] LABS: N-TERMINAL BNP 2758.8 pg/ml (5-450)
[2021-01-31] MEDS ORDERED: MAGNESIUM SULF 50% (8.12 MEQ/2 ML-1 GM VIAL) IVPB ONE (19:25)
[2021-01-31 20:06] LABS: PHOSPHOROUS 2.4 mg/dL (2.5-4.9)
[2021-01-31] MEDS ORDERED: ALBUTEROL SO4 2.5/IPRATROPIUM 0.5 INH SOL 3 ML VIAL.NEB. NEB ONE ×2 (20:26→23:08)
[2021-01-31] MEDS: ALBUTEROL SO4 2.5/IPRATROPIUM 0.5 INH SOL 3 ML VIAL.NEB. NEB SCH ×2 (20:40→23:14)
[2021-01-31 21:07] LABS: EPI CELLS 23 /uL (0-25.1); HYALINE CASTS 2 /uL (0-3.1); URINE APPEARANCE CLEAR; URINE BACTERIA 5 /uL (0-1359); URINE BILIRUBIN 1+ (NEGATIVE); URINE COLOR DK YELLOW; URINE GLUCOSE (UA) NEGATIVE (NEGATIVE); URINE KETONE 1+ (NEGATIVE); URINE LEUK ESTERASE NEGATIVE (NEGATIVE); URINE NITRITE NEGATIVE (NEGATIVE); URINE PROTEIN 3+ (NEGATIVE); URINE RBC 89 /uL (0-23.9); URINE WBC 22 /uL (0-25.8)
[2021-01-31] MEDS ORDERED: ACETAMINOPHEN 325 MG TABLET (FP) PO PRN (21:53)
[2021-01-31] MEDS: RANOLAZINE E.R. 500 MG TABLET (FP) PO SCH (23:14)
[2021-01-31] MEDS: ROSUVASTATIN CA 5 MG TABLET (FP) PO SCH (23:14)
[2021-02-01 06:27] LABS: BASO % 0.4 % (0-2.0); EOS % 1.5 % (0-4.5); HEMATOCRIT 27.1 % (35.4-49); HEMOGLOBIN 9.7 GM/dL (11.7-16.9); LYMPH % 8.1 % (8-40); MCH 34.8 pg (25.7-33.7); MCHC 35.9 g/dl (32.0-35.9); MEAN PLT VOLUME 7.5 fl (7.5-11.1); MONO % 11.7 % (3.8-10.2); NEUT % 78.3 % (42.8-82.8); PLATELET COUNT 203 10^3/uL (134-434); RBC 2.79 M/mm3 (4.00-5.60); RDW 14.7 % (11.9-15.9); WHITE BLOOD COUNT 5.7 K/mm3 (4.0-10.0)
[2021-02-01 06:41] LABS: CALCIUM 7.5 mg/dL (8.5-10.1)
[2021-02-01 06:42] LABS: BLOOD UREA NITROGEN 12.6 mg/dL (7-18)
[2021-02-01 06:45] LABS: CREATININE 1.3 mg/dL (0.55-1.3)
[2021-02-01] MEDS ORDERED: LEVOTHYROXINE NA 25 MCG TABLET (FP) ONE (08:04)
[2021-02-01] MEDS: LEVOTHYROXINE NA 75 MCG TABLET (FP) PO SCH (08:08)
[2021-02-01] MEDS ORDERED: APIXABAN 2.5 MG TABLET PO SCH (10:00)
[2021-02-01] MEDS ORDERED: CLOPIDOGREL BISULFATE 75 MG TABLET (FP) PO SCH (10:00)
[2021-02-01] MEDS ORDERED: metoPROLOL SUCCINATE 25 MG TAB.SR.24H (FP) ONE (10:12)
[2021-02-01] MEDS ORDERED: PANTOPRAZOLE 40 MG TABLET ONE (10:12)
[2021-02-01] MEDS ORDERED: APIXABAN 2.5 MG TABLET ONE (10:12)
[2021-02-01] MEDS ORDERED: CLOPIDOGREL BISULFATE 75 MG TABLET (FP) ONE (10:13)
[2021-02-01] MEDS ORDERED: PT OWN MED DRAWER 7, Y5N ONE ×2 (10:13→14:28)
[2021-02-01] MEDS: RANOLAZINE E.R. 500 MG TABLET (FP) PO SCH ×2 (10:35→22:52)
[2021-02-01] MEDS: APIXABAN 2.5 MG TABLET PO SCH ×2 (10:35→22:52)
[2021-02-01] MEDS: metoPROLOL SUCCINATE 25 MG TAB.SR.24H (FP) PO SCH (10:35)
[2021-02-01] MEDS: PANTOPRAZOLE 40 MG TABLET PO SCH (10:35)
[2021-02-01] MEDS ORDERED: LOSARTAN POTASSIUM 50 MG TABLET ONE (14:27)
[2021-02-01] MEDS ORDERED: amLODIPine BESYLATE 5 MG TABLET (FP) PO ONE (14:42)
[2021-02-01] MEDS ORDERED: CEFTRIAXONE 2 GM in DEXTROSE 5%-WATER 2 GM/100 ML BAG IVPB SCH (15:00)
[2021-02-01] MEDS ORDERED: CEFTRIAXONE 2 GM/100 ML BAG IVPB SCH (15:03)
[2021-02-01] MEDS ORDERED: CEFTRIAXONE 1 GM/50 ML BAG ONE (15:21)
[2021-02-01] MEDS ORDERED: AMPICILLIN SODIUM 1 GM VIAL ONE (15:21)
[2021-02-01] MEDS ORDERED: CEFTRIAXONE 2 GM/100 ML BAG IVPB ONE (15:50)
[2021-02-01] MEDS: AMPICILLIN - 2 GM in SODIUM CHLORIDE 100 ML IVPB SCH ×3 (17:24→23:10)
[2021-02-01] MEDS: LOSARTAN POTASSIUM 25 MG TABLET PO SCH (17:24)
[2021-02-01] MEDS ORDERED: MAGNESIUM SULFATE IN WATER 2 GM/50 ML IVPB IVPB ONE ×2 (21:28→21:39)
[2021-02-01] MEDS ORDERED: POTASSIUM CHLORIDE TABS 20 MEQ TABLET.ER (FP) PO ONE ×2 (21:28→21:39)
[2021-02-01] MEDS: ROSUVASTATIN CA 5 MG TABLET (FP) PO SCH (22:52)
[2021-02-01 23:32] VITALS: BMI 26.2
[2021-02-02] MEDS ORDERED: CEFTRIAXONE 2 GM in DEXTROSE 5%-WATER 2 GM/100 ML BAG IVPB SCH (01:32)
[2021-02-02] MEDS ORDERED: DEXTROSE 5%-WATER 100 ML IVPB ONE ×2 (01:45→14:31)
[2021-02-02] MEDS: CEFTRIAXONE 2 GM in DEXTROSE 5%-WATER 2 GM/100 ML BAG IVPB SCH ×2 (02:34→16:05)
[2021-02-02] MEDS: AMPICILLIN - 2 GM in SODIUM CHLORIDE 100 ML IVPB SCH ×6 (03:02→22:07)
[2021-02-02] MEDS: LEVOTHYROXINE NA 75 MCG TABLET (FP) PO SCH (06:28)
[2021-02-02 07:33] LABS: HEMATOCRIT 29.7 % (35.4-49); HEMOGLOBIN 10.6 GM/dL (11.7-16.9); MCH 34.8 pg (25.7-33.7); MCHC 35.7 g/dl (32.0-35.9); MEAN CELL VOLUME 97.4 fl (80-96); MEAN PLT VOLUME 6.9 fl (7.5-11.1); PLATELET COUNT 236 10^3/uL (134-434); RBC 3.05 M/mm3 (4.00-5.60); RDW 14.6 % (11.9-15.9); WHITE BLOOD COUNT 5.3 K/mm3 (4.0-10.0)
[2021-02-02 07:53] LABS: ALBUMIN 2.6 g/dl (3.4-5.0); BLOOD UREA NITROGEN 13.6 mg/dL (7-18); CALCIUM 7.7 mg/dL (8.5-10.1); MAGNESIUM 2.2 mg/dL (1.8-2.4)
[2021-02-02 07:57] LABS: CREATININE 1.1 mg/dL (0.55-1.3)
[2021-02-02 07:58] LABS: BILIRUBIN,TOTAL 0.5 mg/dL (0.2-1)
[2021-02-02] MEDS ORDERED: methylPREDNISolone NA SUCC 125 MG/2 ML VIAL IVPUSH ONE (09:42)
[2021-02-02] MEDS: APIXABAN 2.5 MG TABLET PO SCH ×2 (10:14→21:16)
[2021-02-02] MEDS: RANOLAZINE E.R. 500 MG TABLET (FP) PO SCH ×2 (10:14→21:16)
[2021-02-02] MEDS: PANTOPRAZOLE 40 MG TABLET PO SCH (10:14)
[2021-02-02] MEDS: metoPROLOL SUCCINATE 25 MG TAB.SR.24H (FP) PO SCH (10:14)
[2021-02-02] MEDS ORDERED: PT OWN MED DRAWER 7, Y5N ONE ×3 (14:30→21:28)
[2021-02-02] MEDS: LOSARTAN POTASSIUM 25 MG TABLET PO SCH (18:43)
[2021-02-02] MEDS: ROSUVASTATIN CA 5 MG TABLET (FP) PO SCH (21:16)
[2021-02-03] MEDS ORDERED: DEXTROSE 5%-WATER 100 ML IVPB ONE ×2 (03:30→15:20)
[2021-02-03] MEDS: CEFTRIAXONE 2 GM in DEXTROSE 5%-WATER 2 GM/100 ML BAG IVPB SCH ×2 (03:39→15:24)
[2021-02-03] MEDS: AMPICILLIN - 2 GM in SODIUM CHLORIDE 100 ML IVPB SCH ×5 (03:39→19:40)
[2021-02-03] MEDS: LEVOTHYROXINE NA 75 MCG TABLET (FP) PO SCH (06:33)
[2021-02-03] MEDS: RANOLAZINE E.R. 500 MG TABLET (FP) PO SCH ×2 (09:09→21:55)
[2021-02-03] MEDS: metoPROLOL SUCCINATE 25 MG TAB.SR.24H (FP) PO SCH (09:09)
[2021-02-03] MEDS: APIXABAN 2.5 MG TABLET PO SCH ×2 (09:09→21:55)
[2021-02-03] MEDS: PANTOPRAZOLE 40 MG TABLET PO SCH (09:09)
[2021-02-03] MEDS ORDERED: AMPICILLIN SODIUM 2 GM VIAL ONE ×4 (11:45→21:21)
[2021-02-03] MEDS ORDERED: SODIUM CHLORIDE 100 ML IVPB ONE ×4 (11:45→21:22)
[2021-02-03] MEDS: POTASSIUM CHLORIDE ORAL LIQUID 20 MEQ/15 ML PO SCH (13:04)
[2021-02-03] MEDS: FUROSEMIDE 40 MG/4 ML INJECTABLE VIAL IVPUSH SCH (13:04)
[2021-02-03] MEDS: LOSARTAN POTASSIUM 25 MG TABLET PO SCH (18:07)
[2021-02-03] MEDS ORDERED: PT OWN MED DRAWER 7, Y5N ONE (19:53)
[2021-02-03] MEDS: ROSUVASTATIN CA 5 MG TABLET (FP) PO SCH (21:55)
[2021-02-04] MEDS ORDERED: DEXTROSE 5%-WATER 100 ML IVPB ONE ×2 (01:20→14:08)
[2021-02-04] MEDS: CEFTRIAXONE 2 GM in DEXTROSE 5%-WATER 2 GM/100 ML BAG IVPB SCH ×2 (02:21→14:54)
[2021-02-04] MEDS: AMPICILLIN - 2 GM in SODIUM CHLORIDE 100 ML IVPB SCH ×7 (03:36→22:25)
[2021-02-04] MEDS ORDERED: AMPICILLIN SODIUM 2 GM VIAL ONE ×5 (05:52→21:25)
[2021-02-04] MEDS: LEVOTHYROXINE NA 75 MCG TABLET (FP) PO SCH (06:24)
[2021-02-04] MEDS: POTASSIUM CHLORIDE ORAL LIQUID 20 MEQ/15 ML PO SCH (10:38)
[2021-02-04] MEDS: metoPROLOL SUCCINATE 25 MG TAB.SR.24H (FP) PO SCH (10:38)
[2021-02-04] MEDS: APIXABAN 2.5 MG TABLET PO SCH ×2 (10:38→22:25)
[2021-02-04] MEDS: PANTOPRAZOLE 40 MG TABLET PO SCH (10:38)
[2021-02-04] MEDS: FUROSEMIDE 40 MG/4 ML INJECTABLE VIAL IVPUSH SCH (10:38)
[2021-02-04] MEDS: RANOLAZINE E.R. 500 MG TABLET (FP) PO SCH ×2 (10:38→22:25)
[2021-02-04] MEDS ORDERED: SODIUM CHLORIDE 100 ML IVPB ONE ×4 (11:50→21:26)
[2021-02-04] MEDS: LOSARTAN POTASSIUM 25 MG TABLET PO SCH (18:53)
[2021-02-04] MEDS: ROSUVASTATIN CA 5 MG TABLET (FP) PO SCH (22:25)
[2021-02-05] MEDS ORDERED: AMPICILLIN SODIUM 2 GM VIAL ONE ×6 (03:03→21:51)
[2021-02-05] MEDS ORDERED: SODIUM CHLORIDE 100 ML IVPB ONE ×5 (03:03→21:51)
[2021-02-05] MEDS ORDERED: DEXTROSE 5%-WATER 100 ML IVPB ONE ×2 (03:04→15:59)
[2021-02-05] MEDS: AMPICILLIN - 2 GM in SODIUM CHLORIDE 100 ML IVPB SCH ×6 (03:09→22:38)
[2021-02-05] MEDS: CEFTRIAXONE 2 GM in DEXTROSE 5%-WATER 2 GM/100 ML BAG IVPB SCH ×2 (03:47→16:07)
[2021-02-05] MEDS: LEVOTHYROXINE NA 75 MCG TABLET (FP) PO SCH (06:15)
[2021-02-05] MEDS: POTASSIUM CHLORIDE ORAL LIQUID 20 MEQ/15 ML PO SCH (10:31)
[2021-02-05] MEDS: PANTOPRAZOLE 40 MG TABLET PO SCH (10:32)
[2021-02-05] MEDS: FUROSEMIDE 40 MG/4 ML INJECTABLE VIAL IVPUSH SCH (10:32)
[2021-02-05] MEDS: metoPROLOL SUCCINATE 25 MG TAB.SR.24H (FP) PO SCH (10:32)
[2021-02-05] MEDS: APIXABAN 2.5 MG TABLET PO SCH ×2 (10:32→22:38)
[2021-02-05] MEDS: RANOLAZINE E.R. 500 MG TABLET (FP) PO SCH ×2 (10:32→22:38)
[2021-02-05] MEDS: LOSARTAN POTASSIUM 25 MG TABLET PO SCH (18:48)
[2021-02-05] MEDS: ROSUVASTATIN CA 5 MG TABLET (FP) PO SCH (22:38)
[2021-02-06] MEDS ORDERED: AMPICILLIN SODIUM 2 GM VIAL ONE ×6 (03:13→21:53)
[2021-02-06] MEDS ORDERED: SODIUM CHLORIDE 100 ML IVPB ONE ×6 (03:13→21:53)
[2021-02-06] MEDS: AMPICILLIN - 2 GM in SODIUM CHLORIDE 100 ML IVPB SCH ×6 (03:38→22:33)
[2021-02-06] MEDS: CEFTRIAXONE 2 GM in DEXTROSE 5%-WATER 2 GM/100 ML BAG IVPB SCH ×2 (03:38→16:08)
[2021-02-06] MEDS: LEVOTHYROXINE NA 75 MCG TABLET (FP) PO SCH (06:24)
[2021-02-06 07:28] LABS: HEMATOCRIT 32.5 % (35.4-49); HEMOGLOBIN 11.4 GM/dL (11.7-16.9); MCH 34.1 pg (25.7-33.7); MCHC 35.1 g/dl (32.0-35.9); MEAN CELL VOLUME 97.1 fl (80-96); MEAN PLT VOLUME 6.9 fl (7.5-11.1); PLATELET COUNT 337 10^3/uL (134-434); RBC 3.35 M/mm3 (4.00-5.60); RDW 14.7 % (11.9-15.9); WHITE BLOOD COUNT 8.7 K/mm3 (4.0-10.0)
[2021-02-06 07:54] LABS: MAGNESIUM 1.9 mg/dL (1.8-2.4)
[2021-02-06 07:57] LABS: CALCIUM 8.1 mg/dL (8.5-10.1); CREATININE 1.3 mg/dL (0.55-1.3)
[2021-02-06] MEDS: POTASSIUM CHLORIDE ORAL LIQUID 20 MEQ/15 ML PO SCH (10:30)
[2021-02-06] MEDS: PANTOPRAZOLE 40 MG TABLET PO SCH (10:31)
[2021-02-06] MEDS: metoPROLOL SUCCINATE 25 MG TAB.SR.24H (FP) PO SCH ×2 (10:31→10:33)
[2021-02-06] MEDS: RANOLAZINE E.R. 500 MG TABLET (FP) PO SCH ×2 (10:31→22:33)
[2021-02-06] MEDS: APIXABAN 2.5 MG TABLET PO SCH ×2 (10:31→22:33)
[2021-02-06] MEDS ORDERED: DEXTROSE 5%-WATER 100 ML IVPB ONE (14:55)
[2021-02-06] MEDS ORDERED: FUROSEMIDE 40 MG/4 ML INJECTABLE VIAL IVPUSH ONE (16:30)
[2021-02-06] MEDS: LOSARTAN POTASSIUM 25 MG TABLET PO SCH (17:08)
[2021-02-06] MEDS: FUROSEMIDE 40 MG/4 ML INJECTABLE VIAL IVPUSH SCH (17:25)
[2021-02-06] MEDS: ROSUVASTATIN CA 5 MG TABLET (FP) PO SCH (22:33)
[2021-02-07] MEDS: AMPICILLIN - 2 GM in SODIUM CHLORIDE 100 ML IVPB SCH ×6 (03:10→22:58)
[2021-02-07] MEDS ORDERED: AMPICILLIN SODIUM 2 GM VIAL ONE ×6 (03:19→21:48)
[2021-02-07] MEDS ORDERED: SODIUM CHLORIDE 100 ML IVPB ONE ×6 (03:19→21:48)
[2021-02-07] MEDS: CEFTRIAXONE 2 GM in DEXTROSE 5%-WATER 2 GM/100 ML BAG IVPB SCH ×2 (03:40→14:08)
[2021-02-07] MEDS: LEVOTHYROXINE NA 75 MCG TABLET (FP) PO SCH (06:23)
[2021-02-07 08:12] LABS: CALCIUM 8.5 mg/dL (8.5-10.1)
[2021-02-07 08:16] LABS: CREATININE 1.4 mg/dL (0.55-1.3)
[2021-02-07] MEDS: POTASSIUM CHLORIDE ORAL LIQUID 20 MEQ/15 ML PO SCH (09:44)
[2021-02-07] MEDS: PANTOPRAZOLE 40 MG TABLET PO SCH (09:45)
[2021-02-07] MEDS: RANOLAZINE E.R. 500 MG TABLET (FP) PO SCH ×2 (09:45→21:36)
[2021-02-07] MEDS: metoPROLOL SUCCINATE 25 MG TAB.SR.24H (FP) PO SCH (09:45)
[2021-02-07] MEDS: APIXABAN 2.5 MG TABLET PO SCH ×2 (09:45→21:36)
[2021-02-07] MEDS ORDERED: PT OWN MED DRAWER 7, Y5N ONE (09:53)
[2021-02-07] MEDS ORDERED: FUROSEMIDE 40 MG TABLET (FP) PO SCH (10:00)
[2021-02-07] MEDS ORDERED: DEXTROSE 5%-WATER 100 ML IVPB ONE (14:06)
[2021-02-07] MEDS: LOSARTAN POTASSIUM 25 MG TABLET PO SCH (17:36)
[2021-02-07] MEDS: ROSUVASTATIN CA 5 MG TABLET (FP) PO SCH (21:36)
[2021-02-08] MEDS ORDERED: AMPICILLIN SODIUM 2 GM VIAL ONE ×6 (01:26→20:46)
[2021-02-08] MEDS ORDERED: SODIUM CHLORIDE 100 ML IVPB ONE ×6 (01:27→20:46)
[2021-02-08] MEDS ORDERED: DEXTROSE 5%-WATER 100 ML IVPB ONE ×2 (01:27→15:25)
[2021-02-08] MEDS: AMPICILLIN - 2 GM in SODIUM CHLORIDE 100 ML IVPB SCH ×6 (02:18→22:42)
[2021-02-08] MEDS: CEFTRIAXONE 2 GM in DEXTROSE 5%-WATER 2 GM/100 ML BAG IVPB SCH ×2 (03:00→16:01)
[2021-02-08] MEDS ORDERED: SODIUM CHLORIDE NASAL SPRAY 44 ML BOTTLE NS PRN (04:14)
[2021-02-08] MEDS: LEVOTHYROXINE NA 75 MCG TABLET (FP) PO SCH (06:26)
[2021-02-08 08:50] LABS: CALCIUM 9.1 mg/dL (8.5-10.1)
[2021-02-08 08:51] LABS: BLOOD UREA NITROGEN 26.2 mg/dL (7-18)
[2021-02-08 08:54] LABS: CREATININE 1.6 mg/dL (0.55-1.3)
[2021-02-08] MEDS: PANTOPRAZOLE 40 MG TABLET PO SCH (10:02)
[2021-02-08] MEDS: FAMOTIDINE 20 MG TABLET PO SCH (10:02)
[2021-02-08] MEDS: metoPROLOL SUCCINATE 25 MG TAB.SR.24H (FP) PO SCH (10:02)
[2021-02-08] MEDS: APIXABAN 2.5 MG TABLET PO SCH ×2 (10:02→21:01)
[2021-02-08] MEDS: RANOLAZINE E.R. 500 MG TABLET (FP) PO SCH ×2 (10:02→21:01)
[2021-02-08] MEDS: POTASSIUM CHLORIDE ORAL LIQUID 20 MEQ/15 ML PO SCH (10:03)
[2021-02-08] MEDS: LOSARTAN POTASSIUM 25 MG TABLET PO SCH (18:01)
[2021-02-08] MEDS: ROSUVASTATIN CA 5 MG TABLET (FP) PO SCH (21:01)
[2021-02-09] MEDS ORDERED: SODIUM CHLORIDE 100 ML IVPB ONE ×3 (03:29→10:15)
[2021-02-09] MEDS ORDERED: AMPICILLIN SODIUM 2 GM VIAL ONE ×3 (03:29→10:15)
[2021-02-09] MEDS: AMPICILLIN - 2 GM in SODIUM CHLORIDE 100 ML IVPB SCH ×3 (03:37→10:26)
[2021-02-09] MEDS: CEFTRIAXONE 2 GM in DEXTROSE 5%-WATER 2 GM/100 ML BAG IVPB SCH (03:39)
[2021-02-09] MEDS: LEVOTHYROXINE NA 75 MCG TABLET (FP) PO SCH (06:13)
[2021-02-09] MEDS: RANOLAZINE E.R. 500 MG TABLET (FP) PO SCH (10:26)
[2021-02-09] MEDS: PANTOPRAZOLE 40 MG TABLET PO SCH (10:26)
[2021-02-09] MEDS: FAMOTIDINE 20 MG TABLET PO SCH (10:26)
[2021-02-09] MEDS: POTASSIUM CHLORIDE ORAL LIQUID 20 MEQ/15 ML PO SCH (10:26)
[2021-02-09] MEDS: metoPROLOL SUCCINATE 25 MG TAB.SR.24H (FP) PO SCH (10:26)
[2021-02-09] MEDS: APIXABAN 2.5 MG TABLET PO SCH (10:26)
[2021-02-09 12:25] VITALS: BP 110/60; PULSE 72; TEMP 98.2
== END 2021-02-09 11:42 | DRG 306 ==
LOC: JER 17:03 → JERBED 18:08 → J4W 02-01 22:23
PROVIDERS: ADMIT Internal Medicine; ATTEND Family Medicine
PROC: 0CJS8ZZ Inspection of Larynx, Via Natural or Artificial Opening Endoscopic (ICD-10-PCS; principal; 2021-02-07)
DX: I38 Endocarditis, valve unspecified (principal); I50.33 Acute on chronic diastolic (congestive) heart failure; G92 Toxic encephalopathy; R78.81 Bacteremia; J98.11 Atelectasis; I10 Essential (primary) hypertension; E78.5 Hyperlipidemia, unspecified; I48.91 Unspecified atrial fibrillation; N18.9 Chronic kidney disease, unspecified; E03.9 Hypothyroidism, unspecified; I73.9 Peripheral vascular disease, unspecified; Z95.810 Presence of automatic (implantable) cardiac defibrillator; J02.9 Acute pharyngitis, unspecified; R09.02 Hypoxemia; I25.10 Atherosclerotic heart disease of native coronary artery without angina pectoris; Z95.1 Presence of aortocoronary bypass graft; R04.0 Epistaxis; I35.0 Nonrheumatic aortic (valve) stenosis
CPT/HCPCS: 36415; 70450-TC; 70490-TC; 71045-TC-FY; 71250-TC; 74220-TC-FY; 74230-TC-FY; 80048; 80053; 81003; 83605; 83735; 83880; 84100; 84443; 84484; 85025; 85027; 85610; 85651; 85730; 86140; 87040; 87086; 92611-GN; 93005; 93010; 93306-TC; 97116-GP; 97161-GP; 99285-25; C9803; U0003; U0005